=== PATIENT | female | born 1970 | race Hispanic/Latino ===

== ENCOUNTER 2019-10-25 19:44 | Observation (INO) | payer SELFPAY ==
[~2019-10-25] VITALS: Ht 162.6 cm; Wt 118.4 kg
--- OUTSIDE RECORDS SUMMARY | 2019-10-25 19:47 | XMS REPORT | Continuity of Care Document ---
Author Author [facility] t Organization [facility] Address [address] [place] [address] Phone Unavailable Care Team Providers Care Chuck Tender Name Role Phone Adamaris MARIE, Kevin PCP [phone] Vamshi MARIE, C Maria C Attphys Adamaris MARIE, Kevin Attphys [phone] Julio MARIE, Salma Attphys Derrek MEDELN, Chandni Attphys Unavailable Matilde MAIL PROCESSING MACHINE OPERATOR, Chastity Attphys Chandni Vila Attphys Unavailable Marcy RN, Franky Martinez Attphys Unavailable Franck MARIE, Bossman Attphys Payers Payer Name Policy Type Policy Number Effective Date Expiration Date S teresa [facility] [id number] [place] [address] xxxxxx 2018 00:00:00 2028 2 3:59:59 [facility] Problems Condition Name Condition Details Condition Category Status Onset Date Resolution Date Last Treatment Date Treating Clinician Comments Source Renal insufficiency Renal insufficiency Disease Active 2019-04-04 00:00 :00 [facility] Moderate episode of recurrent major depressive disorde r Moderate episode of recurrent major depressive disorder Disease Active 2016-03-09 00:00:00 [facility] ALEXA (generalized anxiety disorder) ALEXA (generalized anxiety diso rder) Disease Active 2016-03-09 00:00:00 [facility] Type 2 diabetes mellitus without complic ation, without long-term current use of insulin Type 2 diabetes mellitus without complic ation, without long-term current use of insulin Disease Active 2016-01-13 00:00:00 [facility] Iron deficiency anemia, unspecified Iron deficiency anemia, unsp ecified Disease Active 2016-01-13 00:00:00 [facility] Abnormal uterine bleeding (AUB) Abnormal uterine bleeding (AUB) Dis ease Active 2016-01-13 00:00:00 [facility] Mixed hyperlipidemia- pravachol 40mg Mixed hyperlipidemia- p ravachol 40mg Disease Active 2016-01-13 00:00:00 [facility] BMI 45.0-49.9, adult BMI 45.0-49.9, adult Disease Active 00:00:00 [facility] Essential hypertension, benign- atenelol, HCTZ and nor vasc Essential hypertension, benign- atenelol, HCTZ and norvasc Disease Active 2014-01-27 00:00:00 [facility] Cervical strain Cervical strain Disease Active 2006-02-13 00:00:00 [facility] Back pain Back pain Disease Active 2006-02-13 00:00:00 [facility] Allergies, Adverse Reactions, Alerts Allergy Name Allergy Type Status Severity Reaction(s) Onset Date Inacti ve Date Treating Clinician Comments Source Penicillins DA Active SV 2017-05-22 00:00:00 [facility] Penicillins Propensity to adverse reactions to drug Active 2006-02-13 00:00:00 Face turn colors like purple in childhood [facility] Family History Family Member Diagnosis Comments Start Date Stop Date Source Natural brother Hypertension [facility] Natural daughter [facility] Maternal aunt [facility] th Maternal aunt Diabetes [facility] th Maternal uncle [facility] Natural mother [facility] Natural mother [facility] Natural mother Hypertension [facility] Natural sister Hypertension [facility] Social History Social Habit Start Date Stop Date Quantity Comments Source Sex Assigned At [facility] Cigarettes smoked current (pack per day) - Reported 00:00:00 2019-07-10 00:00:00 [facility] Cigarette pack-years 2019-07-10 00:00:00 2019-07-10 00:00:00 [facility] Alcohol intake 2019-07-10 00:00:00 2019-07-10 00:00:00 [facility] History SDOH Food Worry 2019-04-01 00:00:00 2019-04-01 00:00:00 1 [facility] History SDOH Food Scarcity 2019-04-01 00:00:00 2019-04-01 00:00:00 1 [facility] History of tobacco use 2003-09-23 00:00:00 Current smoker [facility] Smoking Status Start Date Stop Date Source Former smoker 2019-07-10 00:00:00 2019-07-10 00:00:00 [facility] [facility] Medications Ordered Medication Name Filled Medication Name Start Date Stop Da te Current Medication? Ordering Clinician Indication Dosage Frequency Signature (SIG) Comments Components Source citalopram (CELEXA) 40 mg tablet 2019-08-20 00:00:00 Yes MDD (major depressive disorder), recurrent episode, moderate 40mg QD Take 1 tablet by mouth daily. [facility] buPROPion (WELLBUTRIN XL) 300 mg extended release tablet 2019-08-20 00:00:00 Yes MDD (major depressive disorder), recurrent epis ode, moderate 300mg Take 1 tablet by mouth every morning. [facility] ergocalciferol (VITAMIN D2) 1,250 mcg (50,000 unit) capsule 2019-07-13 00:00:00 Yes Vitamin D deficiency 94102R Take 1 cap den by mouth weekly. [facility] amLODIPine (NORVASC) 10 mg tablet 2019-07-10 00:00:00 Yes Essential hypertension 10mg QD Take 1 tablet by mouth daily. [facility] tropicamide (MYDRIACYL) 0.5 % ophthalmic solution 2019-07-10 00:00:00 2020-01-06 23:59:00 No 1[drp] Insti ll 1 Drop in each eye once as needed for up to 1 dose (for poor retina scan image). [facility] citalopram (CELEXA) 40 mg tablet 2019-06-18 00:00:00 2019-08 00:00:00 No MDD (major depressive disorder), recurrent episode, moderate 40mg QD Take 1 tablet by mouth daily. [facility] buPROPion (WELLBUTRIN XL) 300 mg extended release tablet 2019-06-18 00:00:00 2019-08-20 00:00:00 No MDD (major depressiv e disorder), recurrent episode, moderate 300mg Take 1 tablet by mouth every morning. [facility] pravastatin (PRAVACHOL) 40 mg tablet 2019-04-01 00:00:00 Yes Mixed hyperlipidemia 40mg Take 1 tablet by mouth at bedtime nightly. [facility] losartan (COZAAR) 50 mg tablet 2019-04-01 00:00:00 2019-06-15 00:00:00 No Essential hypertension 25mg QD Take 0.5 tablets by mouth daily. [facility] citalopram (CELEXA) 40 mg tablet 2019-04-01 00:00:00 2019-06 00:00:00 No MDD (major depressive disorder), recurrent episode, moderate 40mg QD Take 1 tablet by mouth daily. [facility] buPROPion (WELLBUTRIN XL) 300 mg extended release tablet 2019-04-01 00:00:00 2019-06-18 00:00:00 No MDD (major depressiv e disorder), recurrent episode, moderate 300mg Take 1 tablet by mouth every morning. [facility] lisinopril (PRINIVIL, ZESTRIL) 10 mg tablet 2018 00:00:00 2019-04-01 00:00:00 No Essential hypertension 10mg QD Take 1 tablet by mouth daily. [facility] citalopram (CELEXA) 40 mg tablet 2019-02-05 00:00:00 2019-03 00:00:00 No MDD (major depressive disorder), recurrent episode, moderate 40mg QD Take 1 tablet by mouth daily. [facility] buPROPion (WELLBUTRIN XL) 300 mg extended release tablet 2019-02-05 00:00:00 2019-04-01 00:00:00 No MDD (major depressiv e disorder), recurrent episode, moderate 300mg Take 1 tablet by mouth every morning. [facility] nitrofurantoin mono/m-crystals (MACROBID) 100 mg capsule 2018-12-25 00:00:00 2019-01-01 23:59:00 No Urinary tract infect ion with hematuria, site unspecified 100mg Q.5D Take 1 capsule by mouth 2 times daily for 7 da ys. [facility] atenolol (TENORMIN) 25 mg tablet 2018-11-22 00:00:00 Yes Essential hypertension 25mg QD Take 1 tablet by mouth daily. [facility] hydroCHLOROthiazide (HYDRODIURIL) 25 mg tablet 2018-11-22 00 :00:00 Yes Essential hypertension 25mg QD Take 1 tablet by mouth daily. [facility] metFORMIN (GLUCOPHAGE) 500 mg tablet 2018-11-22 00:00:00 Yes Controlled type 2 diabetes mellitus without complication, without long-term current use of insulin 500mg QD Take 1 tablet by mouth daily (with breakfast). [facility] cetirizine (ZYRTEC) 10 mg tablet 2018-11-22 00:00:00 Yes Environmental allergies 10mg QD Take 1 tablet by mouth daily. [facility] fluticasone propionate (FLONASE) 50 mcg/actuation nasal spra y 2018-11-22 00:00:00 Yes Environmental allergies 1{spray} QD Use 1 [place] in each nostril daily. [facility] clotrimazole (LOTRIMIN AF, CLOTRIMAZOLE,) 1 % topical cream 2018-11-22 00:00:00 Yes Tinea pedis of right foot Q.5D Apply to affected area 2 times daily For 2 wk and start again if rash recurs. [facility] tropicamide (MYDRIACYL) 0.5 % ophthalmic solution 2018-11-22 00:00:00 2018-11-22 23:59:00 No Controlled type 2 di abetes mellitus without complication, without long-term current use of insulin 1[drp] Instill 1 Drop in each eye once as needed for up to 1 dose (for poor retina scan image). [facility] atenolol (TENORMIN) 25 mg tablet 2018-10-30 00:00:00 2018-11 00:00:00 No Essential hypertension, benign 25mg QD Take 1 tablet by mouth alicia y. [facility] hydroCHLOROthiazide (HYDRODIURIL) 25 mg tablet 2 00:00:00 2018-11-22 00:00:00 No Essential hypertension, benign 25mg QD Take 1 tablet by mouth daily. [facility] citalopram (CELEXA) 40 mg tablet 2018-10-02 00:00:00 2019-01 00:00:00 No MDD (major depressive disorder), recurrent episode, moderate 40mg QD Take 1 tablet by mouth daily. [facility] buPROPion (WELLBUTRIN XL) 150 mg extended release tablet 2018-10-02 00:00:00 2019-02-05 00:00:00 No MDD (major depressiv e disorder), recurrent episode, moderate 150mg Take 1 tablet by mouth every morning. [facility] cetirizine (ZYRTEC) 10 mg tablet 2018-06-26 00:00:00 2018-11 00:00:00 No Acute frontal sinusitis, recurrence not specified 10mg QD Take 1 tablet by mouth daily. [facility] fluticasone (FLONASE) 50 mcg/actuation nasal spray 2018-06-26 00:00:00 2018-11-22 00:00:00 No Acute frontal sinusitis, rec urrence not specified 1{spray} QD Use 1 [place] in each nostril daily. [facility] ibuprofen (MOTRIN) 800 mg tablet 2018-05-22 00:00:00 2018-11 00:00:00 No Sore throat 800mg Take 1 tablet by mandie every 8 hours as needed for Pain Take with food. [facility] pravastatin (PRAVACHOL) 40 mg tablet 2018-02-14 00:00: 00 2019-04-01 00:00:00 No Mixed hyperlipidemia 40mg Take 1 tablet by mouth at b edtime nightly. [facility] amLODIPine (NORVASC) 10 mg tablet 2017-09-25 00:00:00 2018 00:00:00 No Essential hypertension, benign 10mg QD Take 1 tablet by mo ut daily. [facility] metFORMIN (GLUCOPHAGE) 500 mg tablet 2017-09-25 00:00: 00 2018-11-22 00:00:00 No Type 2 diabetes mellitus wit hout complication, without long-term current use of insulin 500mg QD Take 1 tablet by mouth daily (with breakfas t). [facility] atenolol (TENORMIN) 25 mg tablet 2017-09-25 00:00:00 2018-10 00:00:00 No Essential hypertension, benign 25mg QD Take 1 tablet by mouth alicia reeder [facility] hydroCHLOROthiazide (HYDRODIURIL) 25 mg tablet 2 00:00:00 2018-10-28 00:00:00 No Essential hypertension, benign 25mg QD Take 1 tablet by mouth daily. [facility] hydrOXYzine (ATARAX) 25 mg tablet 2017-08-09 00:00:00 2018 00:00:00 No Other insomnia 50mg Take 2 tablets b y mouth nightly at bedtime as needed for Insomnia. [facility] cetirizine (ZYRTEC) 10 mg tablet 2017-07-09 00:00:00 2018-11 00:00:00 No Viral upper respiratory tract infection with cough 10mg QD Take 1 tablet by mouth daily. [facility] ibuprofen (MOTRIN) 600 mg tablet 2017-07-09 00:00:00 2018-11 00:00:00 No Viral upper respiratory tract infection with cough 600mg Take 1 tablet by mouth every 8 hours as needed for Pain. [facility] benzonatate (TESSALON PERLES) 100 mg capsule 201 12-13-25 00:00:00 2018-11-22 00:00:00 No Viral upper respiratory tract infection with co ugh Take one to two capsules three times a day as needed for cough. [facility] Immunizations Ordered Immunization Name Filled Immunization Name Date Status Comments Source PPV 23 (Pneumococcal Polysaccharide 23 Valent) 2019-06 00:00:00 Completed [facility] Zoster Vaccine (Shingrix) 2019-07-10 00:00:00 [facility] Influenza, Injectable, Quadrivalent, Preservative Free 2019-03-12 00:00:00 [facility] Influenza, Vaccine<FLUCELVAX>(Multi-Dose) 2018-02-26 00:00 :00 [facility] Influenza Vaccine, Seasonal, Injectable 2017-02-22 00:00:0 0 Completed [facility] Tdap Tetanus, diphtheria, acellular pertussis Vaccine 2016-09-07 00:00:00 Completed [facility] Influenza Vaccine 2016-03-09 00:00:00 Completed [facility] Influenza Vaccine 2015-05-03 00:00:00 [facility] Vital Signs Vital Name Observation Time Observation Value Comments Source Systolic blood pressure 2019-07-10 09:23:00 141 mm[Hg] [facility] Diastolic blood pressure 2019-07-10 09:23:00 67 mm[Hg] [facility] Heart rate 2019-07-10 09:23:00 66 /min [facility] Body temperature 2019-07-10 09:23:00 37.33 Yen [facility] Respiratory rate 2019-07-10 09:23:00 18 /min Andr[facility] Body height 2019-07-10 09:23:00 162.6 cm [facility] Body weight 2019-07-10 09:23:00 120.657 kg [facility] BMI 2019-07-10 09:23:00 45.66 kg/m2 [facility] Oxygen saturation in Arterial blood by Pulse oximetry 12-25 10:10:00 96 /min [facility] Procedures Procedure Date / Time Performed Performing Clinician Sour e OPHTHALMOLOGY RETINAL SCAN 2019-07-24 14:33:08 [facility] COMPREHENSIVE METABOLIC PANEL 2019-07-10 17:07:00 Adamaris [facility] HEMOGLOBIN A1C 2019-07-10 17:07:00 [facility] THYROID STIMULATING HORMONE (TSH) 2019-07-10 17:07:00 [facility] VIT D, 25-HYDROXY 2019-07-10 [facility]:07[facility] [facility] HEMOCCULT KIT FOR SPECIMEN COLLECTION AT HOME 2019-07-10 16: 05:50 [facility] MAMMOGRAM BILAT SCREEN DIGITAL 2019-04-03 16:51:53 [facility] CBC/DIFF 2019-04-01 16:12:00 Bossman Juárez [facility] CBC 2019-04-01 16:12:00 [facility]PREHENSIVE METABOLIC PANEL 2019-04-01 16:06:00 Adamaris [facility] LIPID PROFILE 2019-04-01 16:06:00 [facility] HEMOGLOBIN A1C 2019-04-01 16:06:00 [facility] MICROALBUMIN / CREATININE URINE RATIO 2019-04-01 15:55:00 [facility] POC URINE DIPSTICK, WITHOUT MICRO 2018-12-25 00:00:00 Jami Clayton [facility] CBC/DIFF 2018-11-22 19:31:00 [facility] COMPREHENSIVE METABOLIC PANEL 2018-11-22 19:31:00 Adamaris In katerina [facility] HEMOGLOBIN A1C 2018-11-22 19:31:00 [facility] 2018-11-22 19:31:00 [facility] DIABETIC FOOT EXAM 2018-11-22 18:40:45 Kevin Bailon [facility] HEMOCCULT KIT FOR SPECIMEN COLLECTION AT HOME 2018-11-22 18: 37:24 Adamaris [facility] Plan of Care Planned Activity Planned Date Details Comments Source [facility] Scheduled Test 2020-07-23 00:00:00 DM Retinal Exam (Y early) [code = DM Retinal Exam (Yearly)] [facility] Scheduled Test 2020-07-10 00:00:00 DM HGBA1C (Yearly) [code = DM HGBA1C (Yearly)] [facility] Scheduled Test 2020-04-03 00:00:00 Breast Cancer Scrn (Yearly) [code = Breast Cancer Scrn (Yearly)] [facility] Scheduled Test 2020-04-01 00:00:00 DM Microalbumin Ur ine Scrn (Yearly) [code = DM Microalbumin Urine Scrn (Yearly)] [facility] Scheduled Test 2019-11-23 00:00:00 DM Foot Exam (Year ly) [code = DM Foot Exam (Yearly)] [facility] Scheduled Test 2019-06-06 00:00:00 Cervical Cancer Sc rn (3 Yrs) [code = Cervical Cancer Scrn (3 Yrs)] [facility] Scheduled Test 2018 00:00:00 Colorectal Cancer Scrn Annual (FIT/FOBT) Age 50 to 75 [code = Colorectal Cancer Scrn Annual (FIT/FOBT) Age 50 to 75] [facility] Encounters Start Date/Time End Date/Time Encounter Type Admission Type Attendi [facility] Care Department Encounter ID Source 2019-06-18 00:00:00 2019-06-18 00:00:00 Outpatient [facility] [id number] [facility] 2019-04-16 00:00:00 2019-04-16 00:00:00 Outpatient [facility] [id number] [facility] 2019-04-03 09:52:25 2019-04-03 09:52:25 Outpatient [facility] [id number] [facility] 2019-04-02 00:00:00 2019-04-02 00:00:00 Outpatient [facility] [id number] [facility] 2019-04-01 10:07:34 2019-04-01 10:07:34 Outpatient [facility] [id number] [facility] 2019-04-01 09:53:37 2019-04-01 09:53:37 Outpatient [facility] [id number] [facility] 2019-04-01 08:57:38 2019-04-01 08:57:38 Outpatient [facility] [id number] [facility] 2019-04-01 00:00:00 2019-04-01 00:00:00 Outpatient [facility] [id number] [facility] 2019-04-01 00:00:00 2019-04-01 00:00:00 Outpatient [facility] [id number] [facility] 2019-03-12 10:50:50 2019-03-12 10:50:50 Outpatient [facility] [id number] [facility] 2019-02-05 15:11:25 2019-02-05 15:11:25 Outpatient [facility] [id number] [facility] 2019-01-10 00:00:00 2019-01-10 00:00:00 Outpatient [facility] [id number] [facility] 2019-01-08 00:00:00 2019-01-08 00:00:00 Outpatient [facility] [id number] [facility] 2019-01-02 00:00:00 2019-01-02 00:00:00 Outpatient [facility] [id number] [facility] 2018-12-25 10:09:49 2018-12-25 10:09:49 Outpatient [facility] [id number] [facility] 2018-12-23 15:14:58 2018-12-23 15:14:58 Outpatient [facility] [id number] [facility] 2018-12-11 00:00:00 2018-12-11 00:00:00 Outpatient [facility] [id number] [facility] 2018-12-11 00:00:00 2018-12-11 00:00:00 Outpatient [facility] [id number] [facility] 2018-12-09 00:00:00 2018-12-09 00:00:00 Outpatient [facility] [id number] [facility] 2018-11-22 14:29:03 2018-11-22 14:29:03 Outpatient [facility] [id number] [facility] 2018-11-22 13:23:44 2018-11-22 13:23:44 Outpatient [facility] [id number] [facility] 2018-11-22 00:00:00 2018-11-22 00:00:00 Outpatient [facility] [id number] [facility] 2018-10-31 00:00:00 2018-10-31 00:00:00 Outpatient [facility] [id number] [facility] 2018-10-02 13:54:47 2018-10-02 13:54:47 Outpatient [facility] [id number] [facility] 2018-08-09 00:00:00 2018-08-09 00:00:00 Outpatient [facility] [id number] [facility] 2018-07-17 00:00:00 2018-07-17 00:00:00 Outpatient [facility] [id number] [facility] 2018-07-09 13:14:48 2018-07-09 13:14:48 Outpatient [facility] [id number] [facility] 2018-06-26 09:52:09 2018-06-26 09:52:09 Outpatient [facility] [id number] [facility] 2018-06-13 00:00:00 2018-06-13 00:00:00 Outpatient [facility] [id number] [facility] 2018-06-13 00:00:00 2018-06-13 00:00:00 Outpatient [facility] [id number] [facility] 2018-06-06 13:11:25 2018-06-06 13:11:25 Outpatient [facility] [id number] [facility] 2018-05-22 13:24:52 2018-05-22 13:24:52 Outpatient [facility] [id number] [facility] 2018-03-04 15:17:21 2018-03-04 15:17:21 Outpatient [facility] [id number] [facility] 2018-03-04 15:10:38 2018-03-04 15:10:38 Outpatient [facility] [id number] [facility] 2018-02-26 10:30:32 2018-02-26 10:30:32 Outpatient [facility] [id number] [facility] 2017-05-24 00:00:00 2017-05-24 00:00:00 Outpatient [facility] [id number] [facility] 2017-03-30 00:00:00 2017-03-30 00:00:00 Outpatient [facility] [id number] [facility] 2017-03-21 00:00:00 2017-03-21 00:00:00 Outpatient [facility] [id number] [facility] 2017-03-08 00:00:00 2017-03-08 00:00:00 Outpatient [facility] [id number] [facility] 2017-03-05 00:00:00 2017-03-05 00:00:00 Outpatient [facility] [id number] [facility] 2017-02-22 11:13:51 2017-02-22 11:13:51 Outpatient [facility] [id number] [facility] 2017-02-22 08:46:22 2017-02-22 08:46:22 Outpatient [facility] [id number] [facility] 2017-02-22 00:00:00 2017-02-22 00:00:00 Outpatient [facility] [id number] [facility] Results Test Description Test Time Test Comments Results Result Comments Source OPHTHALMOLOGY RETINAL SCAN 2019-07-24 11:22:38 Test Item RETINAL SCAN-FINAL RESULT (test code = 28480) NORMAL Right Diabetic Retinopathy (test code = 415473) None Right Macular Edema (test code = 21803) None Right Other Suspected Conditions (test code = 03252) None Right Image Quality (test code = 35028) Gradable Image Left Diabetic Retinopathy (test code = 37699) None Left Macular Edema (test code = 68577) None Left Other Suspected Conditions (test code = 41658) None Left Image Quality (test code = 95630) Gradable Image JANN (test code = JANN) Retinal Study Result for LUPE GARNETT, storm 49 y/o, F (: 1970, )presented to [facility] on 07-24-2019 for a retinal imaging study of the left and right eyes. Based on the findings of the study, the following is recommended for CORKY ALVARENGAormal Scan: Please advise the patient to return for another scan in 1 year. Interpreting Provider's Comments: No comments provided Right eye findings: Normal Result. Negative for Diabetic Retinopathy. Left eye findings: Normal Result. Negative for Diabetic Retinopathy. This result was electronically signed by Denis Erickson MD, , Taxonomy: [id number] on 07-24-2019 04:22:38 [facility] time. NOTE: Any pathology noted on this diabetic retinal evaluation should be confirmed by an appropriate ophthalmic examination. [facility], 84-[id number] 11:00:00* Test Item Value Reference Range Interpretation Comments Vit D, 25-Hydroxy (test code = 89497699) 16.0 ng/mL 30-100 L Vitamin D Interpretation (test code = 97949801) Deficient Suffic ient A Sufficient: >30.0Insufficient: 20.0 - 29.9Deficient: <20.0 Lab Interpretation (test code = 12973-1) Abnormal [facility] HospitalHemoglobin [id number] 07:57:00* Test Item Value Reference Range Interpretation Comments Hemoglobin A1c (test code = 4548-4) 6.8 % 4.3-6.1 H Estimated Average Glucose (test code = 57769322) 148 mg/dL 70-11 0 H Lab Interpretation (test code = 39638-3) Abnormal [facility] Metabolic [id number] 07:51:00* Test Item Value Reference Range Interpretation Comments Sodium (test code = 2951-2) 139 mmol/L 136-145 Potassium (test code = 2823-3) 4.3 mmol/L 3.5-5.1 Chloride (test code = 2075-0) 101 mmol/L 98-107 CO2 (test code = 06167573) 31 mmol/L 21-31 Glucose (test code = 18715646) 120 mg/dL 70-110 H Calcium (test code = 15450013) 9.1 mg/dL 8.6-10.3 Urea Nitrogen (test code = 72327832) 12.0 mg/dL 7-25 Creatinine (test code = 74844980) 0.7 mg/dL 0.6-1.2 Alkaline Phosphatase (test code = 95903500) 75 U/L 34-104 ALT (test code = 19180452) 15 U/L 7-52 AST (test code = 36109154) 11 U/L 13-39 L Total Protein (test code = 2885-2) 6.8 g/dL 6-8.3 GFR, Estimated (test code = 38025959) 88 >=90 mL/min/1.73 m2 L Albumin (test code = 69709-9) 3.8 g/dL 3.7-5.3 Anion Gap (test code = 05371226) 7 mmol/L -16 Lab Interpretation (test code = 58801-4) Abnormal [facility] [Thyroid Stimulating Hormone]2019-07-11 07:49:00* Test Item Value Reference Range Interpretation Comments TSH (test code = 94361098) 0.96 0.45- 5.33 uIU/mL If , please see the following reference ranges (not verified by lab): 1st Trimester: 0.05 -3.70 uIU/mL2nd Trimester: 0.31 -4.35 uIU/mL3rd Trimester: 0.41 - 5.18 uIU/mL Lab Interpretation (test code = 22587-8) Normal [facility]- XR CHEST 2 [id number] 11:06:00 Name: CORKY GARNETT [facility] : 1970 Age/S:48 /F [address] [place] [address] Unit#:[id number] Loc: [place] [address] Phys: Blair Cordon MD Dis Date: PHONE #: [phone] Status: REG ER FAX #: [phone] Exam Date: 05/15/2019 Reason: cough EXAMS: CPT CODE: [id number] XR CHEST 2 V 24589 HISTORY: Cough. COMPARISON: April 24, 2019. Location: [facility]. AP and lateral view of the chest: No acute infiltrates, effusion or congestion. Cardiac silhouette is mildly enlarged. IMPRESSION: No acute infiltrates, effusion or congestion. at 1106 Reported and signed by: Donell Munoz M.D. CC: Blair Cordon MD Technologist: Racheal Cantor Trnscrpt Data: 05/15/2019 (1106) [email or web address] Orig Print D/T: S: 05/15/2019 (2466) PAGE 1 Signed Report - XR CHEST 2 [id number] 16:10:00 Name: CORKY GARNETT [facility] : 1970 Age/S:48 /F [address] [place] [address] Unit#:[id number] Loc: [place] [address] Phys: Carlos Oneal MD Dis Date: PHONE #: [phone] Status: REG ER FAX #: [phone] Exam Date: 04/24/2019 Reason: cough EXAMS: CPT CODE: [id number] XR CHEST 2 V 36772 REASON FOR EXAM: cough Exam Order Date: 04/24/2019 3:38 PM Ordering: Carlos Oneal MD Attending:Carlos Oneal MD Location:[facility] PROCEDURE: - XR CHEST 2 V COMPARISON: FINDINGS: PA and lateral views of the chest show clear lungs without evidence of consolidation. No evidence of effusion. The heart size is within normal limits. Pulmonary vasculatures are unremarkable. The osseous structures are grossly intact. IMPRESSION: No active disease. at 1610 Reported and signed by: Demarcus Van M.D. CC: Carlos Oneal MD Technologist: ERWIN ESPINOZA RT(R),CT Trnscrpt Data: 04/24/2019 (2710) [email or web address] Orig Print D/T: S: 04/24/2019 (4372) PAGE 1 Signed Report MAMMOGRAM BILAT SCREEN [id number] 13:01:00IMPRESSION: BENIGNThere is no mammographic evidence of malignancy. A 1 year screening mammogram is recommended. This document has been electronically signed. Elsie Arreaga M.D. to/penrad:04/03/2019 13:01:11 Food Stand Manager: Ms. Anabel Ceron RT(R)(M), [facility] sent: Benign Exam Mammogram BI-RADS: 2 Benign G0202 z12.31Interface, Rad/Mammog In - 04/03/2019 1:54 PM FRAUD PREVENTION ANALYST#[id number] - MAMMOGRAM BILAT SCREEN DIGITALBILATERAL DIGITAL SCREENING MAMMOGRAM WITH CAD: 04/03/2019CLINICAL: Screening for malignancy. Comparison is made to exams dated: 03/04/2018, 03/30/2017, 03/09/2016, and 09/23/2013 [facility]. There are scattered fibroglandular elements in both breas ts that could obscure a lesion on mammography. Current study was also evaluated with a Computer Aided Detection (CAD) system. There are benign calcifications in both breasts. There also are benign lymph nodes in the left breast. No sign ificant masses, calcifications, or other findings are seen in either breast. Th ere has been no significant interval change.IMPRESSIONIMPRESSION: BENIGNThere is no mammographic evidence of malignancy. A 1 year screening mammogram is recomme nded. This document has been electronically signed.Elsie schneider o/penrad:04/03/2019 13:01:11 Food Stand Manager: Ms. Anabel Ceron RT(R)(M ), [facility] sent: Benign Exam Mammogram BI-RADS: 2 Benign G0202 z12.31[facility] HospitalMicroalbumin / Creatinine Urine [id number] 22:53:00* Test Item Value Reference Range Interpretation Comments Microalbumin, Random (test code = 02258131) 2.3 mg/dL <30.0 Corrected result: Previously reported as <0.7 mg/dL on 04/01/2019 at 1450 FRAUD PREVENTION ANALYST. Creatinine, Urine (test code = 06105986) 52 mg/dL 20-320 Urine Microalbumin (test code = 76062466) 44.2 mg/g 0-30 H Corrected result: Previously reported as <13.5 mg/g on 04/01/2019 at 1450 FRAUD PREVENTION ANALYST. JANN (test code = JANN) RESULT RULE CHANGE Lab Interpretation (test code = 13930-3) Abnormal [facility] HospitalLipid [id number] 14:48:00* Test Item Value Reference Range Interpretation Comments Cholesterol (test code = 2093-3) 203.0 mg/dL <=200.0 H Triglyceride (test code = 15560524) 199 mg/dL <150 H HDL (test code = 2085-9) 53.0 mg/dL See Reference Range Narrative . LDL (test code = 01049-7) 110 mg/dL <100 H Op timal: < 100.0 mg/dLNear Optimal: 120-129 mg/dLBorderline: 130-159 mg/dLHigh: 160-189 mg/dLVery High: >=190 mg/dL Patient Fasting? (test code = 38875486) No JANN (test code = JANN) Patient is not fasting. For a triglyceride result greater than 440 mg/dL, consider re-testing when the patient is in a fasting state. Lab Interpretation (test code = 37216-6) Abnormal [facility] URINE DIPSTICK, WITHOUT [id number] 00:00:00* Test Item Value Reference Range Interpretation Comments Color POC (test code = 8154) yellow - - - Clarity POC (test code = 8155) cloudy - - - Spec Alex POC (test code = 8156) >=1.030 1.005-1.030 pH POC (test code = 8157) 5.5 5.0-7.0 Protein POC (test code = 8158) 2+ Neg - Neg Glucose POC (test code = 8159) Neg Neg - Neg Ketone POC (test code = 8160) Neg Neg - Neg Bilirubin POC (test code = 8161) 1+ Neg - Neg Nitrate POC (test code = 8162) Neg Neg - Neg Urobilinogen POC (test code = 8163) 0.2 EU/dL 0.2-1 Leukocyte POC (test code = 8164) 1+ Neg - Neg Blood POC (test code = 8165) 2+ Neg - Neg [facility] HospitalDIABETIC FOOT [id number] 13:40:45Kevin Bailon MD 11/22/2018 5:15 PMDiabetic Foot Exam was performed at 11/22/2018 2:05 PM. Right foot sensation is normal, right foot pulses are normal, right foot appearance is abnormal. Left foot sensation is normal, left foot pulses are normal, left foot appearance is normal. erthematous rash rt foot dorsum 2x3 cm [facility]
--- OUTSIDE RECORDS SUMMARY | 2019-10-25 19:47 | XMS REPORT | Clinical Summary ---
Author Author [facility] Distr ict Organization [facility] Address Unknown Phone Unavailable Care Team Providers Care Warehouse Selector Name Role Phone Kevin Bailon MD PCP Allergies Comments Active Allergy Reactions Severity Noted Date Face turn colors like purple in childhood Penicillins 02/13/2006 Medications End Date Status Medication Sig Dispensed Refills Start Date Active atenolol (TENORMIN) 25 mg Take 1 tablet 90 tablet 2 tabletIndications: by mouth 9 Essential hypertension daily. Active hydroCHLOROthiazide Take 1 tablet 90 tablet 3 11/11 (HYDRODIURIL) 25 mg by mouth 9 tabletIndications: daily. Essential hypertension Active metFORMIN (GLUCOPHAGE) Take 1 tablet 90 tablet 3 0 500 mg tabletIndications: by mouth 9 Controlled type 2 daily (with diabetes mellitus without breakfast). complication, without long-term current use of insulin Active cetirizine (ZYRTEC) 10 mg Take 1 tablet 90 tablet 1 tabletIndications: by mouth 9 Environmental allergies daily. Additional information Patient not taking. Reported on 06/18/2019 11:51 AM Active fluticasone propionate Use 1 Lenore 16 g 6 (FLONASE) 50 in each 9 mcg/actuation nasal nostril sprayIndications: daily. Environmental allergies Active clotrimazole (LOTRIMIN Apply to 60 g 1 AF, CLOTRIMAZOLE,) 1 % affected area 9 topical creamIndications: 2 times daily Tinea pedis of right foot For 2 wk and start again if rash recurs. Active pravastatin (PRAVACHOL) Take 1 tablet 90 tablet 2 40 mg tabletIndications: by mouth at 9 Mixed hyperlipidemia bedtime nightly. 01/06/2020 Active tropicamide (MYDRIACYL) Instill 1 15 mL 0 0.5 % ophthalmic solution Drop in each 0 eye once as needed for up to 1 dose (for poor retina scan image). Active amLODIPine (NORVASC) 10 Take 1 tablet 90 tablet 2 mg tabletIndications: by mouth 0 Essential hypertension daily. Active ergocalciferol (VITAMIN Take 1 12 capsule 0 D2) 1,250 mcg (50,000 capsule by 0 unit) capsuleIndications: mouth weekly. Vitamin D deficiency Active citalopram (CELEXA) 40 mg Take 1 tablet 30 tablet 3 tabletIndications: MDD by mouth 0 (major depressive daily. disorder), recurrent episode, moderate Active buPROPion (WELLBUTRIN XL) Take 1 tablet 30 tablet 3 300 mg extended release by mouth 0 tabletIndications: MDD every (major depressive morning. disorder), recurrent episode, moderate 11/22/2018 Discontinued (Duplicate Orde r) cetirizine (ZYRTEC) 10 mg Take 1 tablet 30 tablet 0 tabletIndications: Viral by mouth 8 upper respiratory tract daily. infection with cough 11/22/2018 Discontinued (Therapy comple cyrus) ibuprofen (MOTRIN) 600 mg Take 1 tablet 30 tablet 0 tabletIndications: Acute by mouth 8 pharyngitis, unspecified every 8 hours etiology, Viral upper as needed for respiratory tract Pain. infection with cough 11/22/2018 Discontinued (Therapy comple cyrus) benzonatate (TESSALON Take one to 20 capsule 0 06/15 PERLES) 100 mg two capsules 8 capsuleIndications: Viral three times a upper respiratory tract day as needed infection with cough for cough. 02/05/2019 Discontinued (Therapy comple cyrus) hydrOXYzine (ATARAX) 25 Take 2 60 tablet 2 mg tabletIndications: tablets by 8 Other insomnia mouth nightly at bedtime as needed for Insomnia. 11/22/2018 Discontinued (Alternate ther apy) amLODIPine (NORVASC) 10 Take 1 tablet 90 tablet 2 mg tabletIndications: by mouth 8 Essential hypertension, daily. benign 11/22/2018 Discontinued (Reorder) metFORMIN (GLUCOPHAGE) Take 1 tablet 90 tablet 3 0 500 mg tabletIndications: by mouth 8 Type 2 diabetes mellitus daily (with without complication, breakfast). without long-term current use of insulin 10/28/2018 Discontinued (Reorder) atenolol (TENORMIN) 25 mg Take 1 tablet 90 tablet 2 tabletIndications: by mouth 8 Essential hypertension, daily. benign 10/28/2018 Discontinued (Reorder) hydroCHLOROthiazide Take 1 tablet 90 tablet 3 09/11 (HYDRODIURIL) 25 mg by mouth 8 tabletIndications: daily. Essential hypertension, benign 04/01/2019 Discontinued (Reorder) pravastatin (PRAVACHOL) Take 1 tablet 90 tablet 2 40 mg tabletIndications: by mouth at 8 Mixed hyperlipidemia bedtime nightly. 11/22/2018 Discontinued (Therapy comple cyrus) ibuprofen (MOTRIN) 800 mg Take 1 tablet 30 tablet 0 tabletIndications: Sore by mouth 9 throat every 8 hours as needed for Pain Take with food. 11/22/2018 Discontinued (Reorder) cetirizine (ZYRTEC) 10 mg Take 1 tablet 30 tablet 0 tabletIndications: Acute by mouth 9 frontal sinusitis, daily. recurrence not specified 11/22/2018 Discontinued (Reorder) fluticasone (FLONASE) 50 Use 1 Lenore 16 g 0 0 mcg/actuation nasal in each 9 sprayIndications: Acute nostril frontal sinusitis, daily. recurrence not specified 02/05/2019 Discontinued (Reorder) citalopram (CELEXA) 40 mg Take 1 tablet 30 tablet 3 tabletIndications: MDD by mouth 9 (major depressive daily. disorder), recurrent episode, moderate 02/05/2019 Discontinued (Therapy comple cyrus) buPROPion (WELLBUTRIN XL) Take 1 tablet 30 tablet 3 150 mg extended release by mouth 9 tabletIndications: MDD every (major depressive morning. disorder), recurrent episode, moderate 11/22/2018 Discontinued (Reorder) atenolol (TENORMIN) 25 mg Take 1 tablet 90 tablet 2 tabletIndications: by mouth 9 Essential hypertension, daily. benign 11/22/2018 Discontinued (Reorder) hydroCHLOROthiazide Take 1 tablet 90 tablet 3 10/12 (HYDRODIURIL) 25 mg by mouth 9 tabletIndications: daily. Essential hypertension, benign 11/22/2018 tropicamide (MYDRIACYL) Instill 1 15 mL 0 0.5 % ophthalmic Drop in each 9 solutionIndications: eye once as Controlled type 2 needed for up diabetes mellitus without to 1 dose complication, without (for poor long-term current use of retina scan insulin image). 01/01/2019 nitrofurantoin Take 1 14 capsule 0 mono/m-crystals capsule by 9 (MACROBID) 100 mg mouth 2 times capsuleIndications: daily for 7 Urinary tract infection days. with hematuria, site unspecified 04/01/2019 Discontinued citalopram (CELEXA) 40 mg Take 1 tablet 30 tablet 3 tabletIndications: MDD by mouth 9 (major depressive daily. disorder), recurrent episode, moderate 04/01/2019 Discontinued buPROPion (WELLBUTRIN XL) Take 1 tablet 30 tablet 3 300 mg extended release by mouth 9 tabletIndications: MDD every (major depressive morning. disorder), recurrent episode, moderate 04/01/2019 Discontinued (Alternate ther apy) lisinopril (PRINIVIL, Take 1 tablet 90 tablet 3 ZESTRIL) 10 mg by mouth 9 tabletIndications: daily. Essential hypertension 06/18/2019 Discontinued (Reorder) citalopram (CELEXA) 40 mg Take 1 tablet 30 tablet 3 tabletIndications: MDD by mouth 9 (major depressive daily. disorder), recurrent episode, moderate 06/18/2019 Discontinued (Reorder) buPROPion (WELLBUTRIN XL) Take 1 tablet 30 tablet 3 300 mg extended release by mouth 9 tabletIndications: MDD every (major depressive morning. disorder), recurrent episode, moderate 07/10/2019 Discontinued (Side effects) losartan (COZAAR) 50 mg Take 0.5 90 tablet 1 tabletIndications: tablets by 9 Essential hypertension mouth daily. 08/20/2019 Discontinued (Reorder) citalopram (CELEXA) 40 mg Take 1 tablet 30 tablet 3 tabletIndications: MDD by mouth 0 (major depressive daily. disorder), recurrent episode, moderate 08/20/2019 Discontinued (Reorder) buPROPion (WELLBUTRIN XL) Take 1 tablet 30 tablet 3 300 mg extended release by mouth 0 tabletIndications: MDD every (major depressive morning. disorder), recurrent episode, moderate Active Problems Problem Noted Date Renal insufficiency 04/04/2019 Moderate episode of recurrent major depressive disord er 03/09/2016 ALEXA (generalized anxiety disorder) 03/09/2016 Type 2 diabetes mellitus without complication, withou t long-term current 01/13/2016 use of insulin Iron deficiency anemia, unspecified 01/13/2016 Abnormal uterine bleeding (AUB) 01/13/2016 Mixed hyperlipidemia- pravachol 40mg 01/13/2016 BMI 45.0-49.9, adult 01/13/2016 Essential hypertension, benign- atenelol, HCTZ and no rvasc 01/27/2014 Cervical strain 02/13/2006 Back pain 02/13/2006 Encounters Care Team Description Date Type Specialty Maria C Bonds MD MDD (major depressive disorder), recurre nt episode, moderate 08/20/2019 Telephonic Psychiatry Encounter Kevin Bailon MD 07/24/2019 Ancillary Ophthalmology Procedure Kevin Bailon MD Preventative health care (Primary Dx); Type 2 diabetes mellitus with complication-microalb ; Dietary counseling for Above / Below Normal BMI; Exercise counseling for Above Normal BMI Only!; Colon cancer screening; Essential hypertension 07/10/2019 Office Visit Family Practice Maria C Bonds MD Primary insomnia (Primary Dx); MDD (major depressive disorder), recurrent episode, moderate 06/18/2019 Office Visit Psychiatry Kevin Bailon MD Breast cancer screening 04/03/2019 Ancillary Radiology Procedure Salma Kim MD MDD (major depressive disorder), recurre nt episode, moderate 04/01/2019 Office Visit Psychiatry Kevin Bailon MD Controlled type 2 diabetes mellitus with out complication, without long-term current use of insulin (Primary Dx); Dietary counseling for Above / Below Normal BMI; Exercise counseling for Above Normal BMI Only!; Nephropathy screen; Breast cancer screening; Mixed hyperlipidemia- pravachol 40mg; Essential hypertension 04/01/2019 Office Visit Family Practice Chandni Anglin LVN Need for immunization against influenza (Primary Dx) 03/12/2019 Nurse Only Family Practice Maria C Bonds MD MDD (major depressive disorder), recurre nt episode, moderate 02/05/2019 Office Visit Psychiatry Chastity Clayton, NEERU Urinary tract infection with hematuria, site unspecified (Primary Dx); Dysuria 12/25/2018 Same Day Family Practice Kevin Bailon MD Prideaux, Melissa 12/23/2018 Nutrition Nutrition Michelle Vidal RN 12/09/2018 Nurse Triage Kevin Bailon MD Controlled type 2 diabetes mellitus with out complication, without long-term current use of insulin (Primary Dx); Essential hypertension; Dietary counseling for Above / Below Normal BMI; Exercise counseling for Above Normal BMI Only!; Screening for breast cancer; Colon cancer screening; Immunization due; Environmental allergies; Abnormal uterine bleeding (AUB); Tinea pedis of right foot 11/22/2018 Office Visit Family Practice Kevin Bailon MD Controlled type 2 diabetes mellitus with out complication, without long-term current use of insulin; Dietary counseling for Above / Below Normal BMI 11/22/2018 Orders Only Family Practice Bossman Juárez MD Type 2 diabetes mellitus without complic ation, without long-term current use of insulin; Essential hypertension, benign- atenelol, HCTZ and norvasc 10/28/2018 Refill Family Practice after 10/24/2018 Immunizations Name Administration Dates Next Due Influenza Vaccine 03/09/2016, 05/03/2015, (Deferred: Unavailable-Patient to return for vacci ne later), 06/22/2014 (Deferred: Patient Refused), 05/21/2014 (Deferred: Other - pt ill, present to [facility] with flu like symptoms. will offer when she feels better.) Influenza Vaccine, 02/22/2017 Seasonal, Injectable Influenza, Injectable, 03/12/2019 Quadrivalent, Preservative Free Influenza, 02/26/2018 Vaccine<FLUCELVAX>(Multi- Dose) PNEUMOCOCCAL 23-VALPS 08/30/2016 (Deferred: Other - pt would like to VACCINE 25 MCG/0.5 ML wait until feeling better. ), 08/17/2016 INJECTION (Deferred: Other) PPV 23 (Pneumococcal 07/10/2019, 11/22/2018 (Def erred: Other - Declined Polysaccharide 23 Valent) today will receive at next visit.) PPV 23 Pneumococcal 06/26/2018 (Deferred: Contr aindication - flu like Polysaccaride symptoms) Tdap Tetanus, diphtheria, 09/07/2016 acellular pertussis Vaccine Zoster Vaccine (Shingrix) 07/10/2019, 11/22/2018 (De ferred: Unavailable-Patient to return for vacci ne later) Family History Medical History Relation Name Comments Hypertension Brother Asthma Daughter Cancer Maternal Aunt breast Diabetes Maternal Aunt Diabetes Maternal throat Uncle Arthritis Mother Diabetes Mother Hypertension Mother Hypertension Sister Relation Name Status Comments Brother Alive 5 Brother Daughter Alive 3 Daughter Father Alive Maternal Aunt Maternal Aunt Maternal Grandfather Maternal Grandmother Maternal Uncle Mother Alive Paternal Grandfather Paternal Grandmother Sister Alive 3 Sister Son Alive 2 Social History Date Tobacco Use Types Packs/Day Years Used Quit: 09/23/2003 Former Smoker Cigarettes 0.5 20 Smokeless Tobacco: Never Used Tobacco Cessation: Counseling Given: No Drinks/Week oz/Week Comments Alcohol Use No Food Insecurity Answer Date Recorded Within the past 12 months, you worried that your Never valery e 04/01/2019 food would run out before you got money to buy more. Within the past 12 months, the food you bought Never true 04/01/2019 just didn't last and you didn't have mo regan to get more. Sex Assigned at Date Recorded Not on file Industry Job Start Date Occupation Not on file Not on file Not on file Travel End Travel History Travel Start No recent travel history available. Last Filed Vital Signs Reading Time Taken Comments Vital Sign 141/67 07/10/2019 9:23 AM [employer] TECHNICIAN Blood Pressure 66 07/10/2019 9:23 AM [employer] TECHNICIAN Pulse 37.3 C (99.2 F) 07/10/2019 9:23 AM [employer] TECHNICIAN Temperature 18 07/10/2019 9:23 AM [employer] TECHNICIAN Respiratory Rate 96% 12/25/2018 10:10 AM CDT Oxygen Saturation - - Inhaled Oxygen Concentration 120.7 kg (266 lb) 07/10/2019 9:23 AM [employer] TECHNICIAN Weight 162.6 cm (5' 4") 07/10/2019 9:23 AM [employer] TECHNICIAN Height 45.66 07/10/2019 9:23 AM [employer] TECHNICIAN Body Mass Index Plan of Treatment Care Team Description Date Type Specialty Maria C Bonds MD [facility] [address] [place] [address] 11/12/2019 Office Visit Psychiatry Health Maintenance Due Date Last Done Comments Colorectal Cancer Scrn 2018 Annual (FIT/FOBT) Age 50 to 75 Cervical Cancer Scrn (3 06/06/2019 06/06/2016 (Pr eviously completed - Yrs) External), 08/26/2013 (Prev iously completed - External) DM Foot Exam (Yearly) 11/23/2019 11/22/2018, 06/14, 05/22/2018, Additional history exists DM Microalbumin Urine 04/01/2020 04/01/2019, 03/15, 02/22/2017, Scrn (Yearly) Additional history exists Breast Cancer Scrn 04/03/2020 04/03/2019, 018, 03/30/2017, (Yearly) Additional history exists DM HGBA1C (Yearly) 07/10/2020 07/10/2019, 019, 11/22/2018, Additional history exists DM Retinal Exam (Yearly) 07/23/2020 07/24/2019, 0 07/09/2018, 03/04/2018, Additional history exists Goals Goal Patient Associated Recent Progress Patient-Stat Aut hor Goal Type Problems ed? Have 3 meals a day Diet No Prideaux, Chandni Reduce portion size Diet No Prideaux, Chandni Note: 2-3 CHO portions per meal Reduce sugar intake Diet No Prideaux, Chandni Note: Switch to sugar subs in coffee and limit Gatorade Weight (lb) < 200 lb (90.7 kg) Weight 120.7 kg (266 lb) No Barning, (07/10/2019 9:23 AM MD Bossman [employer] TECHNICIAN) Note: Improve health Procedures Comments Procedure Name Priority Date/Time Associated Diag nosis OPHTHALMOLOGY RETINAL Routine 07/24/2019 SCAN 9:33 AM CDT VIT D, 25-HYDROXY Routine 07/10/2019 Preventative health care 11:07 AM [employer] TECHNICIAN THYROID STIMULATING Routine 07/10/2019 Essential hypertension HORMONE (TSH) 11:07 AM [employer] TECHNICIAN HEMOGLOBIN A1C Routine 07/10/2019 Type 2 diabetes mellitus 11:07 AM [employer] TECHNICIAN with complication-microalb COMPREHENSIVE METABOLIC Routine 07/10/2019 Type 2 diabetes mellitus PANEL 11:07 AM [employer] TECHNICIAN with complication-microalb HEMOCCULT KIT FOR Routine 07/10/2019 Colon cancer screening SPECIMEN COLLECTION AT 10:05 AM [employer] TECHNICIAN HOME MAMMOGRAM BILAT SCREEN Routine 04/03/2019 Breast cancer screening DIGITAL 10:51 AM [employer] TECHNICIAN CBC Routine 04/01/2019 Abnormal uterin e bleeding 10:12 AM [employer] TECHNICIAN (AUB) CBC/DIFF Routine 04/01/2019 Abnormal uterin e bleeding 10:12 AM [employer] TECHNICIAN (AUB) HEMOGLOBIN A1C Routine 04/01/2019 Controlled type 2 10:06 AM [employer] TECHNICIAN diabetes mellitus without complication, without long-term current use of insulin LIPID PROFILE Routine 04/01/2019 Controlled type 2 10:06 AM [employer] TECHNICIAN diabetes mellitus without complication, without long-term current use of insulin COMPREHENSIVE METABOLIC Routine 04/01/2019 Contro lled type 2 PANEL 10:06 AM [employer] TECHNICIAN diabetes mellitus w ithout complication, without long-term current use of insulin MICROALBUMIN / CREATININE Routine 04/01/2019 Neph ropathy screen URINE RATIO 9:55 AM [employer] TECHNICIAN POC URINE DIPSTICK, Routine 12/25/2018 Dysuria WITHOUT MICRO CBC Routine 11/22/2018 Controlled type 2 2:31 PM CDT diabetes mellitus without complication, without long-term current use of insulin HEMOGLOBIN A1C Routine 11/22/2018 Controlled type 2 2:31 PM CDT diabetes mellitus without complication, without long-term current use of insulin COMPREHENSIVE METABOLIC Routine 11/22/2018 Contro lled type 2 PANEL 2:31 PM CDT diabetes mellitus w ithout complication, without long-term current use of insulin CBC/DIFF Routine 11/22/2018 Controlled type 2 2:31 PM CDT diabetes mellitus without complication, without long-term current use of insulin DIABETIC FOOT EXAM Routine 11/22/2018 Controlled type 2 1:40 PM CDT diabetes mellitus without complication, without long-term current use of insulin HEMOCCULT KIT FOR Routine 11/22/2018 Colon cancer screening SPECIMEN COLLECTION AT 1:37 PM CDT HOME after 10/24/2018 Results * OPHTHALMOLOGY RETINAL SCAN (07/24/2019 9:33 AM CDT) RETINAL NORMAL IRIS SCAN-FINAL RESULT Right Diabetic None IRIS Retinopathy Right Macular None IRIS Edema Right Other None IRIS Suspected Conditions Right Image Gradable Image IRIS Quality Left Diabetic None IRIS Retinopathy Left Macular None IRIS Edema Left Other None IRIS Suspected Conditions Left Image Gradable Image IRIS Quality Specimen Narrative Performed At Retinal Study Result for storm HINOJOSA 49 y/o, F (: [birth year], ) presented to [facility] on 07-24-2019 for a retinal imaging study of the left and r ight eyes. Based on the findings of the study, the following is recommended for CORKY ANG Normal Scan: Please advise the patient to return for another scan in 1 year. Interpreting Provider's Comments: No comments provided Right eye findings: Normal Result. Ne gative for Diabetic Retinopathy. Left eye findings: Normal Result. Neg ative for Diabetic Retinopathy. This result was electronically signed Denis Harris MD, , Taxonomy: [id number] on 07-24-2019 04:2 2:38 [facility] time. NOTE: Any pathology noted on this arnulfo betic retinal evaluation should be confirmed by an appropriate ophthalmic examination. Performing Organization Address City/State/Zipcode Ph one Number IRIS * Vitamin D, 25-Hydroxycalciferol (07/10/2019 11:07 AM [employer] TECHNICIAN) Vit D, 16.0 (L) 30.0 - 100.0 ng/mL [facility] 25-Hydroxy LABORATORY Vitamin D Deficient (A) Sufficient [facility] Interpretation Comment: LABORATORY Sufficient: >30.0 Insufficient: 20.0 - 29.9 Deficient: <20.0 Specimen Blood Performing Organization Address [facility] one Number [facility] [address] [place] [address] * Hemoglobin A1C (07/10/2019 11:07 AM [employer] TECHNICIAN) Only the most recent of 3 results within the time period is included. Hemoglobin A1c 6.8 (H) 4.3 - 6.1 % [facility] Estimated 148 (H) 70 - 110 mg/dL [facility] Average Glucose LABORATORY Specimen Blood Performing Organization Address [facility] one Number [facility] [address] [place] [address] [phone] * Comprehensive Metabolic Panel (07/10/2019 11:07 AM [employer] TECHNICIAN) Only the most recent of 3 results within the time period is included. Sodium 139 136 - 145 mmol/L [facility] Potassium 4.3 3.5 - 5.1 mmol/L [facility] Chloride 101 98 - 107 mmol/L [facility] CO2 31 21 - 31 mmol/L [facility] Glucose 120 (H) 70 - 110 mg/dL [facility] Calcium 9.1 8.6 - 10.3 mg/dL [facility] Urea Nitrogen 12.0 7.0 - 25.0 mg/dL [facility] Creatinine 0.7 0.6 - 1.2 mg/dL [facility] Alkaline 75 34 - 104 U/L [facility] Phosphatase LABORATORY ALT 15 7 - 52 U/L [facility] AST 11 (L) 13 - 39 U/L [facility] Bilirubin, 0.8 0.2 - 1.2 mg/dL [facility] Total LABORATORY Total Protein 6.8 6.0 - 8.3 g/dL [facility] GFR, Estimated 88 (L) >=90 mL/min/1.73 m2 [facility] Albumin 3.8 3.7 - 5.3 g/dL [facility] Anion Gap 7 5 - 16 mmol/L [facility] Specimen Blood Performing Organization Address [facility] one Number [facility] [address] [place] [address] * TSH [Thyroid Stimulating Hormone] (07/10/2019 11:07 AM [employer] TECHNICIAN) TSH 0.96 0.45 - 5.33 uIU/mL [facility] Comment: LABORATORY If , please see the following reference ranges (not verified by lab): 1st Trimester: 0.05 -3.70 uIU/mL 2nd Trimester: 0.31 -4.35 uIU/mL 3rd Trimester: 0.41 - 5.18 uIU/mL Specimen Blood Performing Organization Address City/State/Zipcode Ph one Number [facility] [address] [place] [address] [phone] * MAMMOGRAM BILAT SCREEN DIGITAL (04/03/2019 10:51 AM [employer] TECHNICIAN) Specimen Impressions Performed At IMPRESSION: BENIGN SMS There is no mammographic evidence of ma lignancy. A 1 year screening mammogram is recommended. This document has been electronically s igned. Elsie Arreaga M.D. to/penrad:04/03/2019 13:01:11 Fireproof Door Assembler: Ms. Anabel waldrop RT(R)(M), [facility] letter sent: Benign Exam Mammogram BI-RADS: 2 Benign G0202 z1 2.31 Narrative Performed At #[id number] - MAMMOGRAM BILAT SCREEN DIGITAL SMS BILATERAL DIGITAL SCREENING MAMMOGRAM W ITH CAD: 04/03/2019 CLINICAL: Screening for malignancy. Comparison is made to exams dated: , 03/30/2017, 03/09/2016, and 09/23/2013 [facility]. There are scattered fibroglandular [place] ents in both breasts that could obscure a lesion on mammography. Current study was also evaluated with a Computer Aided Detection (CAD) system. There are benign calcifications in both breasts. There also are benign lymph nodes in the left breast. No significant masses, calcifications, or other findings are seen in either breast. There has been no significant interval change. Procedure Note Interface, Rad/Mammog In - 04/03/2019 1:54 PM [employer] TECHNICIAN #[id number] - MAMMOGRAM BILAT SCREEN DIGITAL BILATERAL DIGITAL SCREENING MAMMOGRAM WITH CAD: 04/03/2019 CLINICAL: Screening for malignancy. Comparison is made to exams dated: 03/04/2018, 03/30/2017, 03/09/2016, and 09/23/2013 [facility]. There are scattered fibroglandular elements in both breasts that could obscure a lesion on mammography. Current study was also evaluated with a Computer Aided Detection (CAD) system. There are benign calcifications in both breasts. There also are benign lymph nodes in the left breast. No significant masses, calcifications, or other findings are seen in either breast. There has been no significant interval change. IMPRESSION IMPRESSION: BENIGN There is no mammographic evidence of malignancy. A 1 year screening mammogram is recommended. This document has been electronically signed. Elsie Arreaga M.D. to/penrad:04/03/2019 13:01:11 Fireproof Door Assembler: Ms. Anabel Ceron RT([place])(M), [facility] letter sent: Benign Exam Mammogram BI-RADS: 2 Benign G0202 z12.31 Performing Organization Address City/State/Zipcode Ph one Number SMS * CBC/Diff (04/01/2019 10:12 AM [employer] TECHNICIAN) Only the most recent of 2 results within the time period is included. WBC 9.5 4.5 - 11.0 K/uL [facility] RBC 5.03 4.20 - 5.40 M/uL [facility] Hemoglobin 14.9 12.0 - 16.0 g/dL [facility] Hematocrit 46.3 37.0 - 47.0 % [facility] MCV 92.0 82.0 - 92.0 fL [facility] MCH 29.6 27.0 - 32.0 pg [facility] MCHC 32.2 32.0 - 36.0 g/dL [facility] RDW 45.0 36.4 - 46.3 fL [facility] Platelet 234 150 - 400 K/uL [facility] Mean Platelet 11.9 9.4 - 12.4 fL [facility] Volume [facility] Percent NRBC 0.0 % [facility] Neutrophil 66.4 34.0 - 70.0 % [facility] Lymphs 26.6 20.0 - 50.0 % [facility] Monocytes 4.8 (L) 5.0 - 12.0 % [facility] Eos 0.9 0.7 - 5.0 % [facility] Basos 0.6 0.1 - 1.2 % [facility] Immature 0.7 (H) 0.0 - 0.5 % [facility] Granulocytes [facility] Neutrophils 6.30 (H) 1.56 - 6.13 K/uL [facility] (Absolute) [facility] Lymphs 2.53 1.18 - 3.74 K/uL [facility] (Absolute) [facility] Monocytes(Absol 0.46 (H) 0.24 - 0.36 K/uL [facility] dora) [facility] Eos (Absolute) 0.09 0.04 - 0.36 K/uL [facility] Baso (Absolute) 0.06 0.01 - 0.08 K/uL [facility] Immature Grans 0.07 (H) 0.00 - 0.03 K/uL [facility] (Abs) [facility] Absolute NRBC 0.00 K/uL [facility] Specimen Blood Performing Organization Address City/[facility] Ph one Number [facility] [address] [place] [address] [phone] * Lipid Profile (04/01/2019 10:06 AM [facility]OR[facility] TECHNICIAN) [facility] Cholesterol 203.0 (H) <=200.0 mg/dL [facility] Triglyceride 199 (H) <150 mg/dL [facility] HDL 53.0 See Reference Range [facility] Narrative. mg/dL [facility] LDL 110 (H) <100 mg/dL [facility] Comment: [facility] Optimal: < 100.0 mg/dL Near Optimal: 120-129 mg/dL Borderline: 130-159 mg/dL High: 160-189 mg/dL Very High: >=190 mg/dL Patient No [facility] Fasting? [facility]OR[facility] Specimen Blood Narrative Performed At Patient is not fasting. For a triglyceride result gre ater than 440 mg/dL, [facility] consider re-testing when the patient is in a fasting state. Performing Organization Address City/[facility] Ph one Number [facility] [address] [place] [address] * Microalbumin / Creatinine Urine Ratio (04/01/2019 9:55 AM [employer] LABORATORY TECHNICIAN) [facility] Microalbumin, 2.3Comment: Corrected result: <30.0 mg/dL [facility] Previously reported as <0.7 LABORATOR Y mg/dL on 04/01/2019 at 1450 [facility]ORAT[facility] TECHNICIAN. Creatinine, 52 20 - 320 mg/dL [facility] Urine [facility] Urine 44.2 (H)Comment: Corrected 0.0 - 30.0 mg/g [facility] Microalbumin result: Previously reported as LABORA TORY <13.5 mg/g on 04/01/2019 at 1450 [employer] LABORATORY TECHNICIAN. Specimen Urine - Voided, urine Narrative Performed At RESULT RULE CHANGE [facility] Performing Organization Address [facility] Ph one Number [facility] [address] [place] [address] * POC URINE DIPSTICK, WITHOUT MICRO (12/25/2018) Color POC yellow - - - Clarity POC cloudy - - - Spec [place] >=1.030 1.005 - 1.030 POC pH POC 5.5 5.0 - 7.0 Protein POC 2+ Neg - Neg Glucose POC Neg Neg - Neg Ketone POC Neg Neg - Neg Bilirubin POC 1+ Neg - Neg Nitrate POC Neg Neg - Neg Urobilinogen 0.2 0.2 - 1.0 EU/dL POC Leukocyte POC 1+ Neg - Neg Blood POC 2+ Neg - Neg Specimen Urine * DIABETIC FOOT EXAM (11/22/2018 1:40 PM CDT) Narrative Performed At Kevin Bailon MD 11/23/19 19 5:15 PM Diabetic Foot Exam was performed at 11/11 2:05 PM. Right foot sensation is normal, right foot pulses are normal, right foot appearance is abnormal. Left foot sensation is n ormal, left foot pulses are normal, left foot appearance is normal. erthema tous rash rt foot dorsum 2x3 cm after 10/24/2018 Insurance Type Payer Benefit Subscriber ID Effective Phone Address Plan / Dates Group [facility] SELF-PAY SELF-PAY xxxxxx 2018- [phone] [id number] [place] [phone] Marco A Anga Personal/F Self 1970 [phone] (Home) [place], [place] [address]
[2019-10-25 19:59] LABS: BASOPHILS % 0.3 % (0.0-1.0); EOSINOPHILS % 0.3 % (0.0-6.0); HEMATOCRIT 45.7 % (34.2-44.1); HEMOGLOBIN 14.8 g/dL (12.0-16.0); LYMPHOCYTES # (AUTO) 1.3 (1.0-3.2); LYMPHOCYTES % 20.8 % (18.0-39.1); MEAN CORPUSCULAR HEMOGLOBIN 28.6 pg (28-32); MEAN CORPUSCULAR HGB CONC 32.4 g/dL (31-35); MEAN CORPUSCULAR VOLUME 88.2 fL (81-99); MONOCYTES # (AUTO) 0.4 (0.2-0.8); MONOCYTES % 6.2 % (4.4-11.3); NEUTROPHILS # (AUTO) 4.5 (2.1-6.9); NEUTROPHILS % 72.2 % (38.7-80.0); PLATELET COUNT 166 x10e3/uL (140-360); RED BLOOD COUNT 5.18 x10e6/uL (3.6-5.1); RED CELL DISTRIBUTION WIDTH 13.3 % (11.7-14.4)
--- NOTE | 2019-10-25 20:01 | Emergency Department Note ---
History of Present Illnes History of Present Illness Chief Complaint: COVID PUI History of Present Illness This is a 49 year old female REPORTS GENERALIZED WEAKNESS, CHEST AND BACK PAIN, BODY ACHES, CHILLS; PT TESTED AT [facility] YESTERDAY FOR COVID (NOT RESULTED AT THIS TIME) PT REPORTS WAS IN CONTACT WITH COVID + FRIEND X1 WEEK AGO. STATES HER SYMPTOMS STARTED 3 DAYS AGO.. Historian: Patient Arrival Mode: Car Onset (how long ago): day(s) (3) Location: CHEST Quality: PAIN, HURTS TO BREATH, PAIN IS RIGHT LATERAL CHEST Radiation: Reports non-radiation Severity: mild Onset quality: gradual Duration (how long): day(s) (3) Timing of current episode: constant Progression: unchanged Chronicity: new Context: Denies recent illness, Denies recent surgery Relieving factors: none Exacerbating factors: movement (INSPIRATION) Associated symptoms: Reports denies other symptoms Treatments prior to arrival: none Past Medical/Family History Physician Review I have reviewed the patient's past medical and family history. Any updates have been documented here. Past Medical History Recent Fever: Yes Clinical Suspicion of Infectio: No New/Unexplained Change in Ment: No Past Medical History: Hypertension, Diabetes, Depression, Hyperlipedemia Past Surgical History: Social History Smoking Cessation: Never Smoker Counseling Performed: No Alcohol Use: Social Any Illegal Drug Use: No TB Exposure/Symptoms: No Physically hurt or threatened: No Family History Family history of heart diseas: No Other Last Tetanus: UTD Any Pre-Existing Lines (PICC,: No Is patient up to date on immun: Yes Last Flu: DENIES Last Pneumovax: DENIES Review of Systems Review of Systems Constitutional: Reports as per HPI EENTM: Reports no symptoms Cardiovascular: Reports as per HPI Respiratory: Reports as per HPI Gastrointestinal: Reports no symptoms Genitourinary: Reports no symptoms Musculoskeletal: Reports no symptoms Integumentary: Reports no symptoms Neurological: Reports no symptoms Psychological: Reports no symptoms Endocrine: Reports no symptoms Hematological/Lymphatic: Reports no symptoms Physical Exam Related Data Allergies: Coded Allergies: Penicillins (Verified Allergy, Intermediate, 10/25/19) Triage Vital Signs Vital Signs Date Time Temp Pulse Resp B/P (MAP) Pulse Ox O2 Delivery O2 Flow Rate FiO2 10/25/19 19:45 99.9 65 16 143/94 96 Vital signs reviewed: Yes Physical Exam CONSTITUTIONAL Constitutional: Present well-developed, Present well-nourished HENT HENT: Present normocephalic, Present atraumatic, Present oropharynx clear/moist, Present nose normal HENT L/R: Present left ext ear normal, Present right ext ear normal EYES Eyes: Reports PERRL, Reports conjunctivae normal NECK Neck: Present ROM normal PULMONARY Pulmonary: Present effort normal, Present breath sounds normal, Present chest tenderness (TO PALPATION OF RIGHT LATERAL CHEST WALL) CARDIOVASCULAR Cardiovascular: Present regular rhythm, Present heart sounds normal, Present capillary refill normal, Present normal rate GASTROINTESTINAL Abdominal: Present soft, Present nontender, Present bowel sounds normal GENITOURINARY Genitourinary: Present exam deferred SKIN Skin: Present warm, Present dry MUSCULOSKELETAL Musculoskeletal: Present ROM normal NEUROLOGICAL Neurological: Present alert, Present oriented x 3, Present no gross motor or sensory deficits PSYCHOLOGICAL Psychological: Present mood/affect normal, Present judgement normal Results Laboratory Laboratory Laboratory Tests Test 10/25/19 19:46 10/25/19 19:45 White Blood Count 6.16 x10e3/uL (4.8-10.8) Red Blood Count 5.18 x10e6/uL (3.6-5.1) Hemoglobin 14.8 g/dL (12.0-16.0) Hematocrit 45.7 % (34.2-44.1) Mean Corpuscular Volume 88.2 fL (81-99) Mean Corpuscular Hemoglobin 28.6 pg (28-32) Mean Corpuscular Hemoglobin Concent 32.4 g/dL (31-35) Red Cell Distribution Width 13.3 % (11.7-14.4) Platelet Count 166 x10e3/uL (140-360) Neutrophils (%) (Auto) 72.2 % (38.7-80.0) Lymphocytes (%) (Auto) 20.8 % (18.0-39.1) Monocytes (%) (Auto) 6.2 % (4.4-11.3) Eosinophils (%) (Auto) 0.3 % (0.0-6.0) Basophils (%) (Auto) 0.3 % (0.0-1.0) Neutrophils # (Auto) 4.5 (2.1-6.9) Lymphocytes # (Auto) 1.3 (1.0-3.2) Monocytes # (Auto) 0.4 (0.2-0.8) Eosinophils # (Auto) 0.0 (0.0-0.4) Basophils # (Auto) 0.0 (0.0-0.1) Absolute Immature Granulocyte (auto 0.01 x10e3/uL (0-0.1) D-Dimer Quantitative (PE/DVT) 140 ng/mL (0-400) Sodium Level 137 mmol/L (136-145) Potassium Level 3.7 mmol/L (3.5-5.1) Chloride Level 102 mmol/L (98-107) Carbon Dioxide Level 22 mmol/L (22-29) Anion Gap 16.7 mmol/L (8-16) Blood Urea Nitrogen 16 mg/dL (7-26) Creatinine 1.06 mg/dL (0.57-1.11) Estimat Glomerular Filtration Rate 55 ML/MIN (60-) BUN/Creatinine Ratio 15 (6-25) Glucose Level 163 mg/dL (74-118) Calcium Level 9.9 mg/dL (8.4-10.2) Total Bilirubin 0.5 mg/dL (0.2-1.2) Aspartate Amino Transf (AST/SGOT) 22 IU/L (5-34) Alanine Aminotransferase (ALT/SGPT) 25 IU/L (0-55) Alkaline Phosphatase 97 IU/L (40-150) Creatine Kinase 35 IU/L (29-168) Creatine Kinase MB 0.70 ng/mL (0-5.0) Troponin I 0.019 ng/mL (0-0.300) Total Protein 7.7 g/dL (6.5-8.1) Albumin 3.4 g/dL (3.5-5.0) Globulin 4.3 g/dL (2.3-3.5) Albumin/Globulin Ratio 0.8 (0.8-2.0) Laboratory Tests Test 10/25/19 19:46 10/25/19 19:45 Lab results reviewed: Yes Imaging Imaging results reviewed: Yes Impressions Procedure: [id number] DX/CHEST SINGLE (PORTABLE) Exam Date: 10/25/19 Exam Time: 2001 REPORT STATUS: Signed EXAMINATION: CHEST SINGLE (PORTABLE) INDICATION: ^Y ^FEVER, COUGH, CHEST PAIN ^[id number] ^2001 ^Y COMPARISON: None FINDINGS: AP view TUBES and LINES: None. LUNGS: Limited by body habitus. Lungs are well inflated. Questionable subtle bilateral peripheral airspace opacities. PLEURA: No pleural effusion or pneumothorax. HEART AND MEDIASTINUM: The cardiomediastinal silhouette is unremarkable. BONES AND SOFT TISSUES: No acute osseous lesion. Soft tissues are unremarkable. UPPER ABDOMEN: No free air under the diaphragm. IMPRESSION: Questionable subtle bilateral peripheral airspace opacities. Underlying/developing pneumonia cannot be excluded. Signed by: Dr. Matt Elise MD on 10/25/2019 8:42 PM Procedures 12 Lead ECG Interpretation ECG Interpretation : ECG: ECG 1 [employer] Loss Prevention Manager: Interpreted by ED physician Date: Oct 25, 2019 Time: 19:51 Rhythm: sinus rhythm Rate: normal BPM: 64 QRS axis: normal ST segments normal: Yes T waves normal: Yes Other findings: LVH Q waves: V1 Clinical Impression: abnormal ECG Assessment & Plan Medical Decision Making MDM Patient presents with 3 days of subjective fever chills body aches dry cough chest pain with cough and inspiration. Was exposed was with a friend a week ago who tested positive for Covid a couple days later. CBC, CMP, cardiac enzymes, EKG, chest x-ray, Covid 19, d-dimer, ordered to eval for myocardial infarction, pneumonia, Covid 19, pulmonary embolus. Patient did not have findings of what looks like bilateral pneumonia on chest x- ray. As a positive color exposure. His comorbidities of hypertension diabetes. O2 sats are 96% on room air. I spoke with should be given Dr. Wilde and they sent agreed to place patient in observation status pending Yap test if Yap test is positive pt will be placed in yap unit. Patient started on Rocephin and Zithromax.. Assessment & Plan Final Impression: (1) Multifocal pneumonia Depart Disposition: ADMITTED Last Vital Signs Date Time Temp Pulse Resp B/P (MAP) Pulse Ox O2 Delivery O2 Flow Rate FiO2 10/25/19 19:45 99.9 65 16 143/94 96 MAX DELEON MD Oct 25, 2019 20:01
[2019-10-25 20:39] LABS: ALBUMIN 3.4 g/dL (3.5-5.0); ALBUMIN/GLOBULIN RATIO 0.8 (0.8-2.0); ANION GAP 16.7 mmol/L (8-16); CALCIUM 9.9 mg/dL (8.4-10.2); CREATININE, SERUM 1.06 mg/dL (0.57-1.11); POTASSIUM 3.7 mmol/L (3.5-5.1)
[2019-10-25 20:46] LABS: CREATINE KINASE MB 0.7 ng/mL (0-5.0)
--- NOTE | 2019-10-25 20:46 | Diagnostic Imaging Report ---
EXAMINATION: CHEST SINGLE (PORTABLE) INDICATION: ^Y ^FEVER, COUGH, CHEST PAIN ^[id number] ^2001 ^Y COMPARISON: None FINDINGS: AP view TUBES and LINES: None. LUNGS: Limited by body habitus. Lungs are well inflated. Questionable subtle bilateral peripheral airspace opacities. PLEURA: No pleural effusion or pneumothorax. HEART AND MEDIASTINUM: The cardiomediastinal silhouette is unremarkable. BONES AND SOFT TISSUES: No acute osseous lesion. Soft tissues are unremarkable. UPPER ABDOMEN: No free air under the diaphragm. IMPRESSION: Questionable subtle bilateral peripheral airspace opacities. Underlying/developing pneumonia cannot be excluded. Signed by: Dr. Matt Elise MD on 10/25/2019 8:42 PM
[2019-10-25] MEDS ORDERED: AZITHROMYCIN 500MG/NS 250 ML 250 ML IV SCH (21:00)
[2019-10-25] MEDS ORDERED: CEFTRIAXONE SOD 1 GM/NS 50 ML 50 ML IV SCH (21:00)
[2019-10-25] MEDS ORDERED: DEXTROSE 50% SYRINGE 50 ML IV PRN (21:15)
[2019-10-25] MEDS ORDERED: ACETAMINOPHEN 325 MG TAB PO PRN (21:15)
[2019-10-25] MEDS: SODIUM CHLORIDE 0.9% 1000ML 1,000 ML IV SCH (21:26)
[2019-10-25 21:59] LABS: CLARITY,URINE CLEAR (CLEAR); COLOR,URINE YELLOW (YELLOW); LEUKOCYTE ESTERASE ,URINE NEGATIVE (NEGATIVE); NITRITE,URINE NEGATIVE (NEGATIVE)
[2019-10-25 22:00] LABS: BACTERIA,URINE RARE /HPF; BILIRUBIN,URINE NEGATIVE (NEGATIVE); EPITHELIAL CELLS,URINE FEW /LPF; KETONES,URINE NEGATIVE (NEGATIVE); PROTEIN,URINE DIPSTICK TRACE (NEGATIVE); RBC,URINE 0-5 /HPF (0-5); URINE UROBILINOGEN 0.2 mg/dL (0.2 - 1); WBC,URINE (MAN) 0-5 /HPF (0-5)
--- OUTSIDE RECORDS SUMMARY | 2019-10-25 22:36 | XMS REPORT | Continuity of Care Document ---
Author Author [facility] t Organization [facility] Address [address] [place] [address] Phone Unavailable Care Team Providers Care Sugar Refinery Supervisor Name Role Phone Adamaris MARIE, Kevin PCP [phone] Melvin DELEON Attphys Unavailable Vamshi MARIE, Mumtaz Lombardi Attphys Adamaris MARIE, Kevin Attphys [phone] Julio MARIE, Salma Attphys Derrek CESPEDES, Chandni Attphys Unavailable Matilde TREATING AND PUMPING SUPERVISOR, Chastity Attphys Chandni Vila Attphys Unavailable Marcy RN, Franky Martinez Attphys Unavailable rFanck MARIE, Bossman Attphys Payers Payer Name Policy Type Policy Number Effective Date Expiration Date S [facility] [id number] [place] [address] xxxxxx 2018 00:00:00 2028 2 3:59:59 [facility] Problems Condition Name Condition Details Condition Category Status Onset Date Resolution Date Last Treatment Date Treating Clinician Comments Source Renal insufficiency Renal insufficiency Disease Active 2019-04-04 00:00 :[address] [facility] Moderate episode of recurrent major depressive disorde r Moderate episode of recurrent major depressive disorder Disease Active 2016-03-09 00:00:[address] [facility] ALEXA (generalized anxiety disorder) ALEXA (generalized anxiety diso rder) Disease Active 2016-03-09 00:00:00 [facility] Type 2 diabetes mellitus without complic ation, without long-term current use of insulin Type 2 diabetes mellitus without complic ation, without long-term current use of insulin Disease Active 2016-01-13 00:00:[address] [facility] Iron deficiency anemia, unspecified Iron deficiency anemia, unsp ecified Disease Active 2016-01-13 00:00:00 [facility] Abnormal uterine bleeding (AUB) Abnormal uterine bleeding (AUB) Dis ease Active 2016-01-13 00:00:00 [facility] Mixed hyperlipidemia- pravachol 40mg Mixed hyperlipidemia- p ravachol 40mg Disease Active 2016-01-13 00:00:[address] [facility] BMI 45.0-49.9, adult BMI 45.0-49.9, adult Disease Active 00:00:[address] [facility] Essential hypertension, benign- atenelol, HCTZ and nor vasc Essential hypertension, benign- atenelol, HCTZ and norvasc Disease Active 2014-01-27 00:00:[address] [facility] Cervical strain Cervical strain Disease Active 2006-02-13 00:00:[address] [facility] Back pain Back pain Disease Active 2006-02-13 00:00:[address] [facility] Allergies, Adverse Reactions, Alerts Allergy Name Allergy Type Status Severity Reaction(s) Onset Date Inacti ve Date Treating Clinician Comments Source Penicillins DA Active SV 2017-05-22 00:00:00 [facility] Penicillins Propensity to adverse reactions to drug Active 2006-02-13 00:00:00 Face turn colors like purple in childhood [facility] Family History Family Member Diagnosis Comments Start Date Stop Date Source Natural brother Hypertension [facility] Natural daughter Ast[facility] Maternal aunt Cancer [facility] Maternal aunt Diabetes [facility] Natural [facility] Natural mother Hypertension [facility] Natural sister Hypertension [facility] Social History Social Habit Start Date Stop Date Quantity Comments Source Sex Assigned At [facility] Cigarettes smoked current (pack per day) - Reported 00:00:00 2019-07-10 00:00:[address] [facility] Cigarette pack-years 2019-07-10 00:00:00 2019-07-10 00:00:[address] [facility] Alcohol intake 2019-07-10 00:00:00 2019-07-10 00:00:[address] [facility] History SDOH Food Worry 2019-04-01 00:00:00 2019-04-01 00:00:[address] [facility] History SDOH Food Scarcity 2019-04-01 00:00:00 2019-04-01 00:00:[address] [facility] History of tobacco use 2003-09-23 00:00:[address] [facility] Smoking Status Start Date Stop Date Source Former smoker 2019-07-10 00:00:00 2019-07-10 00:00:00 [facility] Medications Ordered Medication Name Filled Medication Name Start Date Stop Da te Current Medication? Ordering Clinician Indication Dosage Frequency Signature (SIG) Comments Components Source citalopram (CELEXA) 40 mg tablet 2019-08-20 00:00:00 Yes MDD (major depressive disorder), recurrent episode, moderate 40mg QD Take 1 tablet by mouth daily. [facility] buPROPion (WELLBUTRIN XL) 300 mg extended release tablet 2019-08-20 00:00:00 Yes MDD (major depressive disorder), recurrent epis ode, moderate 300mg Take 1 tablet by mouth every morning. [facility] ergocalciferol (VITAMIN D2) 1,250 mcg (50,000 unit) capsule 2019-07-13 00:00:00 Yes Vitamin D deficiency [id number] Take 1 cap den by mouth weekly. [facility] amLODIPine (NORVASC) 10 mg tablet 2019-07-10 00:00:00 Yes Essential hypertension 10mg QD Take 1 tablet by mouth daily. [facility] tropicamide (MYDRIACYL) 0.5 % ophthalmic solution 2019-07-10 00:00:00 2020-01-06 23:59:00 No 1[drp] Insti ll 1 Drop in each eye once as needed for up to 1 dose (for poor retina scan image). [facility] citalopram (CELEXA) 40 mg tablet 2019-06-18 00:00:2019-08 00:00:00 No MDD (major depressive disorder), recurrent episode, moderate 40mg QD Take 1 tablet by mouth daily. [facility] buPROPion (WELLBUTRIN XL) 300 mg extended release tablet 2019-06-18 00:00:2019-08-20 00:00:00 No MDD (major depressiv e disorder), recurrent episode, moderate 300mg Take 1 tablet by mouth every morning. [facility] pravastatin (PRAVACHOL) 40 mg tablet 2019-04-01 00:00:00 Yes Mixed hyperlipidemia 40mg Take 1 tablet by mouth at bedtime nightly. [facility] losartan (COZAAR) 50 mg tablet 2019-04-01 00:00:00 2019-06-15 00:00:00 No Essential hypertension 25mg QD Take 0.5 tablets by mouth daily. [facility] citalopram (CELEXA) 40 mg tablet 2019-04-01 00:00:00 2019-06 00:00:00 No MDD (major depressive disorder), recurrent episode, moderate 40mg QD Take 1 tablet by mouth daily. [facility] buPROPion (WELLBUTRIN XL) 300 mg extended release tablet 2019-04-01 00:00:00 2019-06-18 00:00:00 No MDD (major depressiv e disorder), recurrent episode, moderate 300mg Take 1 tablet by mouth every morning. [facility] lisinopril (PRINIVIL, ZESTRIL) 10 mg tablet 2018 00:00:00 2019-04-01 00:00:00 No Essential hypertension 10mg QD Take 1 tablet by mouth daily. [facility] citalopram (CELEXA) 40 mg tablet 2019-02-05 00:00:00 2019-03 00:00:00 No MDD (major depressive disorder), recurrent episode, moderate 40mg QD Take 1 tablet by mouth daily. [facility] buPROPion (WELLBUTRIN XL) 300 mg extended release tablet 2019-02-05 00:00:00 2019-04-01 00:00:00 No MDD (major depressiv e disorder), recurrent episode, moderate 300mg Take 1 tablet by mouth every morning. [facility] nitrofurantoin mono/m-crystals (MACROBID) 100 mg capsule 2018-12-25 00:00:00 2019-01-01 23:59:00 No Urinary tract infect ion with hematuria, site unspecified 100mg Q.5D Take 1 capsule by mouth 2 times daily for [address] [facility] atenolol (TENORMIN) 25 mg tablet 2018-11-22 00:00:00 Yes Essential hypertension 25mg QD Take 1 tablet by mouth daily. [facility] hydroCHLOROthiazide (HYDRODIURIL) 25 mg tablet 2018-11-22 00 :00:00 Yes Essential hypertension 25mg QD Take 1 tablet by mouth daily. [facility] metFORMIN (GLUCOPHAGE) 500 mg tablet 2018-11-22 00:00:00 Yes Controlled type 2 diabetes mellitus without complication, without long-term current use of insulin 500mg QD Take 1 tablet by mouth daily (with breakfast). [facility] cetirizine (ZYRTEC) 10 mg tablet 2018-11-22 00:00:00 Yes Environmental allergies 10mg QD Take 1 tablet by mouth daily. [facility] fluticasone propionate (FLONASE) 50 mcg/actuation nasal spra y 2018-11-22 00:00:00 Yes Environmental allergies 1{spray} QD Use 1 [place] in each nostril daily. [facility] clotrimazole (LOTRIMIN AF, CLOTRIMAZOLE,) 1 % topical cream 2018-11-22 00:00:00 Yes Tinea pedis of right foot Q.5D Apply to affected area 2 times daily For 2 wk and start again if rash recurs. [facility] tropicamide (MYDRIACYL) 0.5 % ophthalmic solution 2018-11-22 00:00:00 2018-11-22 23:59:00 No Controlled type 2 di abetes mellitus without complication, without long-term current use of insulin 1[drp] Instill 1 Drop in each eye once as needed for up to 1 dose (for poor retina scan image). [facility] atenolol (TENORMIN) 25 mg tablet 2018-10-30 00:00:00 2018-11 00:00:00 No Essential hypertension, benign 25mg QD Take 1 tablet by mouth alicia y. [facility] hydroCHLOROthiazide (HYDRODIURIL) 25 mg tablet 2 00:00:00 2018-11-22 00:00:00 No Essential hypertension, benign 25mg QD Take 1 tablet by mouth daily. [facility] citalopram (CELEXA) 40 mg tablet 2018-10-02 00:00:00 2019-01 00:00:00 No MDD (major depressive disorder), recurrent episode, moderate 40mg QD Take 1 tablet by mouth daily. [facility] buPROPion (WELLBUTRIN XL) 150 mg extended release tablet 2018-10-02 00:00:00 2019-02-05 00:00:00 No MDD (major depressiv e disorder), recurrent episode, moderate 150mg Take 1 tablet by mouth every morning. [facility] cetirizine (ZYRTEC) 10 mg tablet 2018-06-26 00:00:00 2018-11 00:00:00 No Acute frontal sinusitis, recurrence not specified 10mg QD Take 1 tablet by mouth daily. [facility] fluticasone (FLONASE) 50 mcg/actuation nasal spray 2018-06-26 00:00:00 2018-11-22 00:00:00 No Acute frontal sinusitis, rec urrence not specified 1{spray} QD Use 1 [place] in each nostril daily. [facility] ibuprofen (MOTRIN) 800 mg tablet 2018-05-22 00:00:00 2018-11 00:00:00 No Sore throat 800mg Take 1 tablet by mandie every 8 hours as needed for Pain Take with food. [facility] pravastatin (PRAVACHOL) 40 mg tablet 2018-02-14 00:00: 00 2019-04-01 00:00:00 No Mixed hyperlipidemia 40mg Take 1 tablet by mouth at b edtime nightly. [facility] amLODIPine (NORVASC) 10 mg tablet 2017-09-25 00:00:00 2018 00:00:00 No Essential hypertension, benign 10mg QD Take 1 tablet by mo [facility] daily. [facility] metFORMIN (GLUCOPHAGE) 500 mg tablet 2017-09-25 00:00: 00 2018-11-22 00:00:00 No Type 2 diabetes mellitus wit hout complication, without long-term current use of insulin 500mg QD Take 1 tablet by mouth daily (with breakfas t). [facility] atenolol (TENORMIN) 25 mg tablet 2017-09-25 00:00:00 2018-10 00:00:00 No Essential hypertension, benign 25mg QD Take 1 tablet by mouth alicia reeder [facility] hydroCHLOROthiazide (HYDRODIURIL) 25 mg tablet 2 00:00:00 2018-10-28 00:00:00 No Essential hypertension, benign 25mg QD Take 1 tablet by mouth daily. [facility] hydrOXYzine (ATARAX) 25 mg tablet 2017-08-09 00:00:00 2018 00:00:00 No Other insomnia 50mg Take 2 tablets b y mouth nightly at bedtime as needed for Insomnia. [facility] cetirizine (ZYRTEC) 10 mg tablet 2017-07-09 00:00:00 2018-11 00:00:00 No Viral upper respiratory tract infection with cough 10mg QD Take 1 tablet by mouth daily. [facility] ibuprofen (MOTRIN) 600 mg tablet 2017-07-09 00:00:00 2018-11 00:00:00 No Viral upper respiratory tract infection with cough 600mg Take 1 tablet by mouth every 8 hours as needed for Pain. [facility] benzonatate (TESSALON PERLES) 100 mg capsule 201 12-13-25 00:00:00 2018-11-22 00:00:00 No Viral upper respiratory tract infection with co ugh Take one to two capsules three times a day as needed for cough. [facility] Immunizations Ordered Immunization Name Filled Immunization Name Date Status Comments Source PPV 23 (Pneumococcal Polysaccharide 23 Valent) 2019-06 00:00:[address] [facility] Zoster Vaccine (Shingrix) 2019-07-10 00:00:[address] [facility] Influenza, Injectable, Quadrivalent, Preservative Free 2019-03-12 00:00:[address] [facility] Influenza, Vaccine<FLUCELVAX>(Multi-Dose) 2018-02-26 00:00 :[address] [facility] Influenza Vaccine, Seasonal, Injectable 2017-02-22 00:00:[address] [facility] Tdap Tetanus, diphtheria, acellular pertussis Vaccine 2016-09-07 00:00:[address] [facility] Influenza Vaccine 2016-03-09 00:00:[address] [facility] Influenza Vaccine 2015-05-03 00:00:00 [facility] Vital Signs Vital Name Observation Time Observation Value Comments Source Systolic blood pressure 2019-07-10 09:23:00 141 mm[Hg] [facility] Diastolic blood pressure 2019-07-10 09:23:00 67 mm[Hg] [facility] Heart rate 2019-07-10 09:23:00 66 /min [facility] Body temperature 2019-07-10 09:23:00 37.33 Yen Andrés is [facility] Respiratory rate 2019-07-10 09:23:00 18 /min Andrés is [facility] Body height 2019-07-10 09:23:00 162.6 cm [facility] Body weight 2019-07-10 09:23:[address] [facility] BMI 2019-07-10 09:23:00 45.66 kg/m2 [facility] Oxygen saturation in Arterial blood by Pulse oximetry 12-25 10:10:00 96 /min [facility] Procedures Procedure Date / Time Performed Performing Clinician [facility] e OPHTHALMOLOGY RETINAL SCAN 2019-07-24 14:33:08 [facility] COMPREHENSIVE METABOLIC PANEL 2019-07-10 17:07:00 [facility] HEMOGLOBIN A1C 2019-07-10 17:07:00 [facility] THYROID STIMULATING HORMONE (TSH) 2019-07-10 17:07:00 [facility] VIT D, 25-HYDROXY 2019-07-10 17:07:00 [facility] HEMOCCULT KIT FOR SPECIMEN COLLECTION AT HOME 2019-07-10 16: 05:50 [facility] MAM[facility] BILAT SCREEN DIGITAL 2019-04-03 16:51:53 [facility] CBC/DIFF 2019-04-01 16:12:00 Bossman Juárez [facility] CBC 2019-04-01 16:12:00 Bossman Juárez [facility] COMPREHENSIVE METABOLIC PANEL 2019-04-01 16:06:00 [facility] LIPID PROFILE 2019-04-01 16:06:00 [facility] HEMOGLOBIN A1C 2019-04-01 16:06:00 [facility] MICROALBUMIN / CREATININE URINE RATIO 2019-04-01 15:55:00 [facility] POC URINE DIPSTICK, WITHOUT MICRO 2018-12-25 00:00:[address] [facility] CBC/DIFF 2018-11-22 19:31:00 Adamaris [facility] COMPREHENSIVE METABOLIC PANEL 2018-11-22 19:31:00 Adamaris In katerina [facility] HEMOGLOBIN A1C 2018-11-22 19:31:00 Adamaris [facility] CBC 2018-11-22 19:31:00 Adamaris [facility] DIABETIC FOOT EXAM 2018-11-22 18:40:45 [facility] HEMOCCULT KIT FOR SPECIMEN COLLECTION AT HOME 2018-11-22 18: 37:24 [facility] Plan of Care Planned Activity Planned Date Details Comments Source [facility] Scheduled Test 2020-07-23 00:00:00 DM Retinal Exam (Y early) [code = DM Retinal Exam (Yearly)] [facility] Scheduled Test 2020-07-10 00:00:00 DM HGBA1C (Yearly) [code = DM HGBA1C (Yearly)] [facility] Scheduled Test 2020-04-03 00:00:00 Breast Cancer Scrn (Yearly) [code = Breast Cancer Scrn (Yearly)] [facility] Scheduled Test 2020-04-01 00:00:00 DM Microalbumin Ur ine Scrn (Yearly) [code = DM Microalbumin Urine Scrn (Yearly)] [facility] Scheduled Test 2019-11-23 00:00:00 DM Foot Exam (Year ly) [code = DM Foot Exam (Yearly)] [facility] Scheduled Test 2019-06-06 00:00:00 Cervical Cancer Sc rn (3 Yrs) [code = Cervical Cancer Scrn (3 Yrs)] [facility] Scheduled Test 2018 00:00:00 Colorectal Cancer Scrn Annual (FIT/FOBT) Age 50 to 75 [code = Colorectal Cancer Scrn Annual (FIT/FOBT) Age 50 to 75] [facility] Encounters Start Date/Time End Date/Time Encounter Type Admission Type Attendi [facility] Facility Care Department Encounter ID Source 2019-06-18 00:00:00 2019-06-18 00:00:00 Outpatient [facility] [id number] [facility] 2019-04-16 00:00:00 2019-04-16 00:00:00 Outpatient [facility] [id number] [facility] 2019-04-03 09:52:25 2019-04-03 09:52:25 Outpatient [facility] [id number] [facility] 2019-04-02 00:00:00 2019-04-02 00:00:00 Outpatient [facility] [id number] [facility] 2019-04-01 10:07:34 2019-04-01 10:07:34 Outpatient [facility] [id number] [facility] 2019-04-01 09:53:37 2019-04-01 09:53:37 Outpatient [facility] [id number] [facility] 2019-04-01 08:57:38 2019-04-01 08:57:38 Outpatient [facility] [id number] [facility] 2019-04-01 00:00:00 2019-04-01 00:00:00 Outpatient [facility] [id number] [facility] 2019-04-01 00:00:00 2019-04-01 00:00:00 Outpatient [facility] [id number] [facility] 2019-03-12 10:50:50 2019-03-12 10:50:50 Outpatient [facility] [id number] [facility] 2019-02-05 15:11:25 2019-02-05 15:11:25 Outpatient [facility] [id number] [facility] 2019-01-10 00:00:00 2019-01-10 00:00:00 Outpatient [facility] [id number] [facility] 2019-01-08 00:00:00 2019-01-08 00:00:00 Outpatient [facility] [id number] [facility] 2019-01-02 00:00:00 2019-01-02 00:00:00 Outpatient [facility] [id number] [facility] 2018-12-25 10:09:49 2018-12-25 10:09:49 Outpatient [facility] [id number] [facility] 2018-12-23 15:14:58 2018-12-23 15:14:58 Outpatient [facility] [id number] [facility] 2018-12-11 00:00:00 2018-12-11 00:00:00 Outpatient [facility] [id number] [facility] 2018-12-11 00:00:00 2018-12-11 00:00:00 Outpatient [facility] [id number] [facility] 2018-12-09 00:00:00 2018-12-09 00:00:00 Outpatient [facility] [id number] [facility] 2018-11-22 14:29:03 2018-11-22 14:29:03 Outpatient [facility] [id number] [facility] 2018-11-22 13:23:44 2018-11-22 13:23:44 Outpatient [facility] [id number] [facility] 2018-11-22 00:00:00 2018-11-22 00:00:00 Outpatient [facility] [id number] [facility] 2018-10-31 00:00:00 2018-10-31 00:00:00 Outpatient [facility] [id number] [facility] 2018-10-02 13:54:47 2018-10-02 13:54:47 Outpatient [facility] [id number] [facility] 2018-08-09 00:00:00 2018-08-09 00:00:00 Outpatient [facility] [id number] [facility] 2018-07-17 00:00:00 2018-07-17 00:00:00 Outpatient [facility] [id number] [facility] 2018-07-09 13:14:48 2018-07-09 13:14:48 Outpatient [facility] [id number] [facility] 2018-06-26 09:52:09 2018-06-26 09:52:09 Outpatient [facility] [id number] [facility] 2018-06-13 00:00:00 2018-06-13 00:00:00 Outpatient [facility] [id number] [facility] 2018-06-13 00:00:00 2018-06-13 00:00:00 Outpatient [facility] [id number] [facility] 2018-06-06 13:11:25 2018-06-06 13:11:25 Outpatient [facility] [id number] [facility] 2018-05-22 13:24:52 2018-05-22 13:24:52 Outpatient [facility] [id number] [facility] 2018-03-04 15:17:21 2018-03-04 15:17:21 Outpatient [facility] [id number] [facility] 2018-03-04 15:10:38 2018-03-04 15:10:38 Outpatient [facility] [id number] [facility] 2018-02-26 10:30:32 2018-02-26 10:30:32 Outpatient [facility] [id number] [facility] 2017-05-24 00:00:00 2017-05-24 00:00:00 Outpatient [facility] [id number] [facility] 2017-03-30 00:00:00 2017-03-30 00:00:00 Outpatient [facility] [id number] [facility] 2017-03-21 00:00:00 2017-03-21 00:00:00 Outpatient [facility] [id number] [facility] 2017-03-08 00:00:00 2017-03-08 00:00:00 Outpatient [facility] [id number] [facility] 2017-03-05 00:00:00 2017-03-05 00:00:00 Outpatient [facility] [id number] [facility] 2017-02-22 11:13:51 2017-02-22 11:13:51 Outpatient [facility] [id number] [facility] 2017-02-22 08:46:22 2017-02-22 08:46:22 Outpatient [facility] [id number] [facility] 2017-02-22 00:00:00 2017-02-22 00:00:00 Outpatient [facility] [id number] [facility] Results Test Description Test Time Test Comments Results Result Comments Source CHEST SINGLE (PORTABLE) 2019-10-25 20:41:00 [place] [address] Patient Name: CORKY GARNETT MR #: [id number] : [id number] Age/Sex: 49/F Req #: [id number] Adm Physician: Ordered by: MAX DELEON MD Report #: [id number] Location: ER Room/Bed: Procedure: [id number] DX/CHEST SINGLE (PORTABLE) Exam Date: 10/25/19 Exam Time: 2001 REPORT STATUS: Signed EXAMINATION: CHEST SINGLE (PORTABLE) INDICATION: Y FEVER, COUGH, CHEST PAIN [id number] COMPARISON: None FINDINGS: AP view TUBES and LINES: None. LUNGS: Limited by body habitus. Lungs are well inf lated. Questionable subtle bilateral peripheral airspace opacities. PLEURA: No pleural effusion or pneumothorax. HEART AND MEDIASTINUM: The cardiomediastinal silhouette is unremarkable. BONES AND SOFT TISSUES: No acute osseous lesion. Soft tissues are unremarkable. UPPER ABDOMEN: No free air under the diaphragm. IMPRESSION: Questionable subtle bilateral peripheral airspace opacities. Underlying/developing pneumonia cannot be excluded. Signed by: Dr. Matt Johnston MD on 10/25/2019 8:42 PM Dictated By: MATT JONHSTON MD 41 Transcribed By: ELI on 10/25/192041 COPY TO: MAX DELEON MD OPHTHALMOLOGY RETINAL SCAN 2019-07-24 11:22:38 Test Item RETINAL SCAN-FINAL RESULT (test code = 53648) NORMAL Right Diabetic Retinopathy (test code = 107830) None Right Macular Edema (test code = 18335) None Right Other Suspected Conditions (test code = 85049) None Right Image Quality (test code = 51507) Gradable Image Left Diabetic Retinopathy (test code = 71388) None Left Macular Edema (test code = 12289) None Left Other Suspected Conditions (test code = 15800) None Left Image Quality (test code = 37286) Gradable Image JANN (test code = JANN) Retinal Study Result for LUPE GARNETT, a 49 y/o, F (: 1970, )presented to [facility] on 07-24-2019 for a retinal imaging study [...] signed by Denis Erickson MD, , Taxonomy: [id number] on 07-24-2019 04:22:38 [facility] time. NOTE: Any pathology noted on this diabetic retinal evaluation should be confirmed by an appropriate ophthalmic examination. [facility] Center[facility], 75-[id number] 11:00:00* Test Item Value Reference Range Interpretation Comments Vit D, 25-Hydroxy (test code = 79803814) 16.0 ng/mL 30-100 L Vitamin D Interpretation (test code = 73562644) Deficient Suffic ient A Sufficient: >30.0Insufficient: 20.0 - 29.9Deficient: <20.0 Lab Interpretation (test code = 42476-2) Abnormal [facility] CenterHemoglobin [id number] 07:57:00* Test Item Value Reference Range Interpretation Comments Hemoglobin A1c (test code = 4548-4) 6.8 % 4.3-6.1 H Estimated Average Glucose (test code = 12424394) 148 mg/dL 70-11 0 H Lab Interpretation (test code = 51977-9) Abnormal [facility] CenterComprehensive Metabolic [id number] 07:51:00* Test Item Value Reference Range Interpretation Comments Sodium (test code = 2951-2) 139 mmol/L 136-145 Potassium (test code = 2823-3) 4.3 mmol/L 3.5-5.1 Chloride (test code = 2075-0) 101 mmol/L 98-107 CO2 (test code = 50522478) 31 mmol/L 21-31 Glucose (test code = 00226572) 120 mg/dL 70-110 H Calcium (test code = 15206846) 9.1 mg/dL 8.6-10.3 Urea Nitrogen (test code = 62426760) 12.0 mg/dL 7-25 Creatinine (test code = 43273733) 0.7 mg/dL 0.6-1.2 Alkaline Phosphatase (test code = 75700822) 75 U/L 34-104 ALT (test code = 62051341) 15 U/L 7-52 AST (test code = 22625159) 11 U/L 13-39 L Total Protein (test code = 2885-2) 6.8 g/dL 6-8.3 GFR, Estimated (test code = 03540611) 88 >=90 mL/min/1.73 m2 L Albumin (test code = 24562-8) 3.8 g/dL 3.7-5.3 Anion Gap (test code = 68517276) 7 mmol/L 5-16 Lab Interpretation (test code = 22315-8) [facility]normal [facility] CenterTS [Thyroid Stimulating Hormone]2019-07-11 07:49:00* Test Item Value Reference Range Interpretation Comments TSH (test code = 63813540) 0.96 0.45- 5.33 uIU/mL If , please see the following reference ranges (not verified by lab): 1st Trimester: 0.05 -3.70 uIU/mL2nd Trimester: 0.31 -4.35 uIU/mL3rd Trimester: 0.41 - 5.18 uIU/mL Lab Interpretation (test code = 75587-4) Normal [facility]- XR CHEST 2 [id number] 11:06:00 Name: CORKY GARNETT [facility] : 1970 Age/S:48 /F [address] [facility] Unit#:[id number] Loc: [place] [address] Phys: Blair Cordon MD Dis Date: PHONE #: [phone] Status: REG ER FAX #: [phone] Exam Date: 05/15/2019 Reason: cough EXAMS: CPT CODE: [id number] XR CHEST 2 V 13416 HISTORY: Cough. COMPARISON: April 24, 2019. Location: [facility]. AP and lateral view of the chest: No acute infiltrates, effusion or congestion. Cardiac silhouette is mildly enlarged. IMPRESSION: No acute infiltrates, effusion or congestion. at 1106 Reported and signed by: Donell Munoz M.D. CC: Blair Cordon MD Technologist: Racheal Cantor Trnscrpt Data: 05/15/2019 (1106) t.SDR.TH4 Orig Print D/T: S: 05/15/2019 (1105) PAGE 1 Signed Report - XR CHEST 2 [id number] 16:10:00 Name: CORKY GARNETT [facility] : 1970 Age/S:48 /F [address] [facility] Unit#:[id number] Loc: [place] [address] Phys: Carlos Oneal MD Dis Date: PHONE #: [phone] Status: REG ER FAX #: [phone] Exam Date: 04/24/2019 Reason: cough EXAMS: CPT CODE: [id number] XR CHEST 2 V 51022 REASON FOR EXAM: cough Exam Order Date: 04/24/2019 3:38 PM Ordering: Carlos Oneal MD Attending:Carlos Oneal MD Location:[facility] PROCEDURE: - XR CHEST 2 V COMPARISON: [...] Technologist: ERWIN ESPINOZA RT(R),CT Trnscrpt Data: 04/24/2019 (2940) t.SDR.VTL Orig Print D/T: S: 04/24/2019 (0136) PAGE 1 Signed Report MAMMOGRAM BILAT SCREEN [id number] 13:01:00IMPRESSION: BENIGNThere is no mammographic evidence of malignancy. A 1 year screening mammogram is recommended. This document has been electronically signed. Elsie Arreaga M.D. to/penrad:04/03/2019 13:01:11 Rn Critical Care: Ms. Anabel Ceron RT(R)(M), [facility] Benign Exam Mammogram BI-RADS: 2 Benign G0202 z12.31Interface, Rad/Mammog In - 04/03/2019 1:54 PM KETTLE CHIPPER#[id number] - MAMMOGRAM BILAT SCREEN DIGITALBILATERAL DIGITAL SCREENING MAMMOGRAM WITH CAD: 04/03/2019CLINICAL: Screening for malignancy. Comparison is made to exams dated: 03/04/2018, 03/30/2017, 03/09/2016, and 09/23/2013 [facility]. There are scattered fibroglandular elements in both [...] has been electronically signed.Elsie schneider o/penrad:04/03/2019 13:01:11 Rn Critical Care: Ms. Anabel Ceron RT(R)(M ), [facility] Benign Exam Mammogram BI-RADS: [address] Benign [address]12[address] CenterMicroalbumin / Creatinine Urine [id number] 22:53:00* Test Item Value Reference Range Interpretation Comments Microalbumin, Random (test code = 97217546) 2.3 mg/dL <30.0 Corrected result: Previously reported as <0.7 mg/dL on 04/01/2019 at 1450 KETTLE CHIPPER. Creatinine, Urine (test code = 33474803) 52 mg/dL 20-320 Urine Microalbumin (test code = 88435924) 44.2 mg/g 0-30 H Corrected result: Previously reported as <13.5 mg/g on 04/01/2019 at 1450 KETTLE CHIPPER. JANN (test code = JANN) RESULT RULE CHANGE Lab Interpretation (test code = 60552-7) Abnormal [facility] CenterLipid [id number] 14:48:00* Test Item Value Reference Range Interpretation Comments Cholesterol (test code = 2093-3) 203.0 mg/dL <=200.0 H Triglyceride (test code = 19785505) 199 mg/dL <150 H HDL (test code = 2085-9) 53.0 mg/dL See Reference Range Narrative . LDL (test code = 47832-3) 110 mg/dL <100 H Op timal: < 100.0 mg/dLNear Optimal: 120-129 mg/dLBorderline: 130-159 mg/dLHigh: 160-189 mg/dLVery High: >=190 mg/dL Patient Fasting? (test code = 16093544) No JANN (test code = JANN) Patient is not fasting. For a triglyceride result greater than 440 mg/dL, consider re-testing when the patient is in a fasting state. Lab Interpretation (test code = 22321-7) Abnormal [facility] URINE DIPSTICK, WITHOUT [id number] 00:00:00* Test Item Value Reference Range Interpretation Comments Color POC (test code = 8154) yellow - - - Clarity POC (test code = 8155) cloudy - - - Spec [place] POC (test code = 8156) >=1.030 1.005-1.030 [...] code = 8165) 2+ Neg - Neg [facility] CenterDIABETIC FOOT [id number] 13:40:45Kevin Bailon MD 11/22/2018 5:15 PMDiabetic Foot Exam was performed at 11/22/2018 2:05 PM. Right foot sensation is normal, right foot pulses are normal, right foot appearance is abnormal. Left foot sensation is normal, left foot pulses are normal, left foot appearance is normal. erthematous rash rt foot dorsum 2x[address] [facility]
--- OUTSIDE RECORDS SUMMARY | 2019-10-25 22:36 | XMS REPORT | Clinical Summary ---
Author Author [facility] Dist[facility] ict Organization [facility] Address Unknown Phone Unavailable Care Team Providers Care General Assembler Installer Name Role Phone Kevin Bailon MD PCP [...] 11:51 AM Active fluticasone propionate Use 1 [place] 16 g 6 (FLONASE) 50 in each [...] Discontinued (Reorder) fluticasone (FLONASE) 50 Use 1 [place] 16 g 0 0 mcg/actuation nasal in [...] Comments Vital Sign 141/67 07/10/2019 9:23 AM PLANNER INTERN Blood Pressure 66 07/10/2019 9:23 AM PLANNER INTERN Pulse 37.3 C (99.2 F) 07/10/2019 9:23 AM PLANNER INTERN Temperature 18 07/10/2019 9:23 AM PLANNER INTERN Respiratory Rate 96% 12/25/2018 10:10 AM CDT Oxygen Saturation - - Inhaled Oxygen Concentration 120.7 kg (266 lb) 07/10/2019 9:23 AM PLANNER INTERN Weight 162.6 cm (5' 4") 07/10/2019 9:23 AM PLANNER INTERN Height 45.66 07/10/2019 9:23 AM PLANNER INTERN Body Mass Index Plan of Treatment Care Team Description Date Type Specialty Maria C Bnods MD [facility] [address] [place] [address] 11/12/2019 Office Visit Psychiatry Health [...] No Barning, (07/10/2019 9:23 AM MD [place] PLANNER INTERN) Note: Improve health Procedures Comments Procedure Name Priority Date/Time Associated Diag nosis OPHTHALMOLOGY RETINAL Routine 07/24/2019 SCAN 9:33 AM CDT VIT D, 25-HYDROXY Routine 07/10/2019 Preventative health care 11:07 AM PLANNER INTERN THYROID STIMULATING Routine 07/10/2019 Essential hypertension HORMONE (TSH) 11:07 AM PLANNER INTERN HEMOGLOBIN A1C Routine 07/10/2019 Type 2 diabetes mellitus 11:07 AM PLANNER INTERN with complication-microalb COMPREHENSIVE METABOLIC Routine 07/10/2019 Type 2 diabetes mellitus PANEL 11:07 AM PLANNER INTERN with complication-microalb HEMOCCULT KIT FOR Routine 07/10/2019 Colon cancer screening SPECIMEN COLLECTION AT 10:05 AM PLANNER INTERN HOME MAMMOGRAM BILAT SCREEN Routine 04/03/2019 Breast cancer screening DIGITAL 10:51 AM PLANNER INTERN CBC Routine 04/01/2019 Abnormal uterin e bleeding 10:12 AM PLANNER INTERN (AUB) CBC/DIFF Routine 04/01/2019 Abnormal uterin e bleeding 10:12 AM PLANNER INTERN (AUB) HEMOGLOBIN A1C Routine 04/01/2019 Controlled type 2 10:06 AM PLANNER INTERN diabetes mellitus without complication, without long-term current use of insulin LIPID PROFILE Routine 04/01/2019 Controlled type 2 10:06 AM PLANNER INTERN diabetes mellitus without complication, without long-term current use of insulin COMPREHENSIVE METABOLIC Routine 04/01/2019 Contro lled type 2 PANEL 10:06 AM PLANNER INTERN diabetes mellitus w ithout complication, without long-term current use of insulin MICROALBUMIN / CREATININE Routine 04/01/2019 Neph ropathy screen URINE RATIO 9:55 AM PLANNER INTERN POC URINE DIPSTICK, Routine 12/25/2018 Dysuria WITHOUT [...] F (: [birth year] 67, ) presented to [facility] on 07-24-2019 for a retinal imaging study [...] electronically signed Denis Harris MD, , Taxonomy: [id number] on 07-24-2019 04:2 2:38 [facility] time. NOTE: Any pathology noted on this arnulfo betic retinal evaluation should be confirmed by an appropriate ophthalmic examination. Performing Organization Address City/State/Zipcode Ph one Number IRIS * Vitamin D, 25-Hydroxycalciferol (07/10/2019 11:07 AM PLANNER INTERN) Vit D, 16.0 (L) 30.0 - 100.0 ng/mL [facility] 25-Hydroxy LABORAT[facility] Vitamin D Deficient (A) Sufficient [facility] Interpretation Comment: LABORATORY Sufficient: >30.0 Insufficient: 20.0 - 29.9 Deficient: <20.0 Specimen Blood Performing Organization Address [facility] one Number [facility] [address] [place] [address] * Hemoglobin A1C (07/10/2019 11:07 AM PLANNER INTERN) Only the most recent of 3 results within the time period is included. Hemoglobin A1c 6.8 (H) 4.3 - 6.1 % [facility] Estimated 148 (H) 70 - 110 mg/dL [facility] Average Glucose LABORATORY Specimen Blood Performing Organization Address [facility] one Number [facility] [address] [place] [address] * Comprehensive Metabolic Panel (07/10/2019 11:07 AM PLANNER INTERN) Only the most recent of 3 results [...] LABORATORY Calcium 9.1 8.6 - 10.3 mg/dL [facility] Urea Nitrogen 12.0 7.0 - [...] [facility] Specimen Blood Performing Organization Address [facility] one Number [facility] [address] [place] [address] [phone] * TSH [Thyroid Stimulating Hormone] (07/10/2019 11:07 AM PLANNER INTERN) TSH 0.96 0.45 - 5.33 uIU/mL [facility] Comment: LABORATORY If , please see the following reference ranges (not verified by lab): 1st Trimester: 0.05 -3.70 uIU/mL 2nd Trimester: 0.31 -4.35 uIU/mL 3rd Trimester: 0.41 - 5.18 uIU/mL Specimen Blood Performing Organization Address City/State/Zipcode Ph one Number [facility] [address] [place] [address] * MAMMOGRAM BILAT SCREEN DIGITAL (04/03/2019 10:51 AM PLANNER INTERN) Specimen Impressions Performed At IMPRESSION: BENIGN SMS There is no mammographic evidence of ma lignancy. A 1 year screening mammogram is recommended. This document has been electronically s igned. Elsie Arreaga M.D. to/penrad:04/03/2019 13:01:11 Bounty Trapper: Ms. Anabel waldrop RT(R)(M), [facility] letter sent: Benign Exam Mammogram BI-RADS: 2 Benign G0202 z1 2.31 Narrative Performed At #[id number] - MAMMOGRAM BILAT SCREEN DIGITAL SMS BILATERAL DIGITAL SCREENING MAMMOGRAM W ITH CAD: 04/03/2019 CLINICAL: Screening for malignancy. Comparison is made to exams dated: , 03/30/2017, 03/09/2016, and 09/23/2013 [facility]. There are scattered fibroglandular nisqually ents in both breasts that could obscure [...] Interface, Rad/Mammog In - 04/03/2019 1:54 PM PLANNER INTERN #[id number] - MAMMOGRAM BILAT SCREEN DIGITAL BILATERAL DIGITAL SCREENING MAMMOGRAM WITH CAD: 04/03/2019 CLINICAL: Screening for malignancy. Comparison is made to exams dated: 03/04/2018, 03/30/2017, 03/09/2016, and 09/23/2013 [facility]. There are scattered fibroglandular elements [...] electronically signed. Elsie Arreaga M.D. to/penrad:04/03/2019 13:01:11 Bounty Trapper: Ms. Anabel Ceron RT([place]oula)(M), [facility] letter sent: Benign Exam Mammogram BI-RADS: 2 Benign G0202 z12.31 Performing Organization Address City/State/Zipcode Ph one Number SMS * CBC/Diff (04/01/2019 10:12 AM PLANNER INTERN) Only the most recent of 2 results [...] [facility] Specimen Blood Performing Organization Address City/[facility] Ph one Number [facility] [address] [place] [address] * Lipid Profile (04/01/2019 10:06 AM PLANNER INTERN) [facility] Cholesterol 203.0 (H) <=200.0 mg/dL [facility] [...] in a fasting state. Performing Organization Address City/[facility] Ph one Number [facility] [address] [place] [address] * Microalbumin / Creatinine Urine Ratio (04/01/2019 9:55 AM PLANNER INTERN) [facility] Microalbumin, 2.3Comment: Corrected result: <30.0 mg/dL [facility] Random Previously reported as <0.7 LABORATOR Y mg/dL on 04/01/2019 at 1450 PLANNER INTERN. Creatinine, 52 20 - 320 mg/dL [facility] Urine LABORATORY Urine 44.2 (H)Comment: Corrected 0.0 - 30.0 mg/g [facility] N [facility] Microalbumin result: Previously reported as LABORA TORY <13.5 mg/g on 04/01/2019 at 1450 PLANNER INTERN. Specimen Urine - Voided, urine Narrative Performed At RESULT RULE CHANGE [facility] Performing Organization Address City/State/[facility] Ph one Number [facility] [address] [place] [address] * POC URINE DIPSTICK, WITHOUT MICRO (12/25/2018) Color POC yellow - - - Clarity POC cloudy - - - Spec [place] >=1.030 1.005 - 1.030 POC pH POC [...] Effective Phone Address Plan / Dates Group [facility] SELF-PAY SELF-PAY xxxxxx 2018- [phone] [address] [place] [address] 7 [phone] A Anga Personal/F Self 1970 [phone] (Home) [place], [place] [address]
[2019-10-25] MEDS ORDERED: ZOLPIDEM TARTRATE 5 MG TAB PO PRN (23:00)
[2019-10-26] VITALS: BP 138/81
[2019-10-26 00:30] VITALS: BP 138/81
--- NOTE | 2019-10-26 00:46 | Consultation ---
DATE OF CONSULTATION: Pulmonary Critical Care Consultation CHIEF COMPLAINT: Fever and dyspnea. HISTORY OF PRESENT ILLNESS: The patient is a 49-year-old woman. She has been ill with malaise and dyspnea for about a week. She has noticed fevers at home. She denies any abdominal pain. She has no nausea or vomiting. PAST SURGICAL HISTORY: Noncontributory. PAST MEDICAL HISTORY: 1. Diabetes without insulin. 2. No prior history of asthma or COPD. 3. No prior history of heart disease. ALLERGIES: THE PATIENT IS ALLERGIC TO PENICILLIN. FAMILY HISTORY: Noncontributory. REVIEW OF SYSTEMS: The patient did have some fevers at home. There is no headache. There is no neck pain. She is having dyspnea and cough. No chest pain. There is no abdominal pain. She has no nausea or vomiting. She has no leg edema. PHYSICAL EXAMINATION: VITAL SIGNS: The patient is afebrile. The blood pressure is 152/90 and the pulse is 73. Saturation is 97%. The patient's temperature is 99.9. HEENT: Shows no facial swelling or erythema. CARDIAC: Reveals regular rate and rhythm with normal S1 and S2. LUNGS: Auscultation of lungs reveals crackles at the bases. There is no wheezing. ABDOMEN: Soft, nontender. There is no rebound or guarding. EXTREMITIES: Shows no leg edema or calf tenderness. SKIN: Shows no rashes. NEUROLOGIC: Shows no focal abnormalities. LABORATORY DATA: White blood count is 6.1 and hemoglobin is 14.8. The platelet count is 166. The BUN to creatinine ratio is 16 to 1.06. The potassium is 3.7 and carbon dioxide is 22. Albumin is 3.4. RADIOGRAPHIC DATA: Chest x-ray shows peripheral airspace opacities suggestive of possible viral pneumonia. IMPRESSION: 1. Coronavirus disease 2019. 2. Viral pneumonia. PLAN: 1. Antibiotics. 2. Oxygen. 3. Judicious use of fluids. Reji Wilde MD [facility]/MODL /[id number]
--- NOTE | 2019-10-26 01:00 | NUR ---
{null, RECEIVED PATIENT FROM ER IN STABLE CONDITION, NO SIGNS OF RESPIRATORY DISTRESS NOTED. IV FLUIDS ARE RUNNING AT ORDERED RATE AND PATIENT VOICES NO PAIN AT THIS TIME. BED IS IN LOWEST POSITION, BOTH SIDE RAILS ARE UP, CALL LIGHT IS WITHIN EASY REACH, WILL CONTINUE TO MONITOR. }
[2019-10-26] MEDS ORDERED: ONDANSETRON HCL INJ 2MG/ML 2ML 2 MG/ML VIAL IV PRN (03:00)
[2019-10-26] MEDS ORDERED: HYDRALAZINE HCL 20 MG/ML VIAL IV PRN (03:00)
[2019-10-26 04:00] VITALS: BP 113/71
[2019-10-26] MEDS: SODIUM CHLORIDE 0.9% 1000ML 1,000 ML IV SCH (05:25)
[2019-10-26] MEDS: INSULIN REGULAR, HUMAN 100 UNIT/1 ML 3ML VIAL SQ SCH ×2 (07:30→11:30)
[2019-10-26 08:28] VITALS: BP 104/89
[2019-10-26 08:36] VITALS: BP 104/89
[2019-10-26] MEDS ORDERED: pravastatin PO (08:45)
[2019-10-26] MEDS ORDERED: ASPIRIN ENTERI325 MG PO (08:45)
[2019-10-26] MEDS ORDERED: FERROUS SULFAT325 MG PO (08:45)
[2019-10-26] MEDS ORDERED: CITALOPRAM HBR20 MG PO (08:45)
[2019-10-26] MEDS ORDERED: AMLODIPINE BESY10 MG PO (08:45)
[2019-10-26] MEDS ORDERED: VITAMIN B-121000 MCG PO (08:45)
[2019-10-26] MEDS ORDERED: ESIDRIX25 MG PO (08:45)
[2019-10-26] MEDS ORDERED: METFORMIN HCL500 MG PO (08:45)
[2019-10-26] MEDS ORDERED: BUPROPION XL150 MG PO (08:45)
[2019-10-26] MEDS ORDERED: ATENOLOL50 MG PO (08:45)
[2019-10-26] MEDS ORDERED: FAMOTIDINE 20 MG/2 ML VIAL IV SCH (09:00)
--- NOTE | 2019-10-26 10:03 | NUR ---
{null, Met with Escobar ALMEIDA regarding care plan and dc plans. He anticipates discharging pt home today, pending his assessment. Addendum: 10/26/19 at 1021 by FARHANA CINTRON CM CORRECTION: ESCOBAR RAE NP }
[2019-10-26 11:24] LABS: BASOPHILS % 0.2 % (0.0-1.0); HEMATOCRIT 43.1 % (34.2-44.1); LYMPHOCYTES # (AUTO) 1.1 (1.0-3.2); LYMPHOCYTES % 25.2 % (18.0-39.1); MEAN CORPUSCULAR HEMOGLOBIN 28.4 pg (28-32); MEAN CORPUSCULAR HGB CONC 32.5 g/dL (31-35); MEAN CORPUSCULAR VOLUME 87.4 fL (81-99); MONOCYTES # (AUTO) 0.4 (0.2-0.8); MONOCYTES % 8.2 % (4.4-11.3); PLATELET COUNT 161 x10e3/uL (140-360); RED BLOOD COUNT 4.93 x10e6/uL (3.6-5.1); RED CELL DISTRIBUTION WIDTH 13.3 % (11.7-14.4)
[2019-10-26 11:42] LABS: MAGNESIUM 1.6 MG/DL (1.3-2.1); PHOSPHORUS 2.2 MG/DL (2.3-4.7)
[2019-10-26 12:03] LABS: CREATINE KINASE MB 1.1 ng/mL (0-5.0)
[2019-10-26 12:04] LABS: THYROID STIMULATING HORMONE 1.171 uIU/mL (0.350-4.940)
[2019-10-26 12:25] VITALS: BP 107/51
[2019-10-26 12:32] LABS: ALANINE AMINOTRANSFERASE 25 IU/L (0-55); ALBUMIN 3.3 g/dL (3.5-5.0); ALBUMIN/GLOBULIN RATIO 0.8 (0.8-2.0); ALKALINE PHOSPHATASE 89 IU/L (40-150); ANION GAP 15.6 mmol/L (8-16); BLOOD UREA NITROGEN 10 mg/dL (7-26); BUN/CREATININE RATIO 13 (6-25); CALCIUM 8.5 mg/dL (8.4-10.2); CARBON DIOXIDE 23 mmol/L (22-29); CHLORIDE 105 mmol/L (98-107); CREATININE, SERUM 0.78 mg/dL (0.57-1.11); EST GLOMERULAR FILTRATION RATE > 60 ML/MIN (60-); GLUCOSE 129 mg/dL (74-118); POTASSIUM 3.6 mmol/L (3.5-5.1); SODIUM 140 mmol/L (136-145)
--- NOTE | 2019-10-26 14:00 | NUR ---
{null, Per Dr.Hamer Charles and , "patient cleared to discharge." Prince Uzma SIDDIQI aware }
[2019-10-26] MEDS ORDERED: AZITHROMYCIN250 MG PO (14:01)
--- NOTE | 2019-10-26 14:23 | Progress Note ---
DATE: SUBJECTIVE: The patient is feeling better. She is having less dyspnea. She has no cough. PHYSICAL EXAMINATION: VITAL SIGNS: The blood pressure is 107/51, saturation is 95%, and the pulse is 78. HEENT: Shows no facial swelling or erythema. CARDIAC: Reveals regular rate and rhythm with normal S1 and S2. LUNGS: Auscultation of lungs reveals rhonchorous breath sounds bilaterally. There is no wheezing. ABDOMEN: Soft and nontender. There is no rebound or guarding. EXTREMITIES: Shows no leg edema or calf tenderness. There is no cyanosis or clubbing. SKIN: Shows no rashes. NEUROLOGICAL: Shows no focal abnormalities. LABORATORY DATA: BUN to creatinine ratio is normal. Other electrolytes are within normal limits. The white blood cell count is 4.5 and the platelet count is 161. IMPRESSION: 1. COVID-19 and viral pneumonia. 2. Diabetes. PLAN: 1. Discharge home. 2. Oxygen if needed. 3. Antibiotics. 4. Follow up with Dr. Jackson in 2 weeks. Reji Wilde MD [facility]/MODL /[id number]
--- NOTE | 2019-10-26 14:54 | Consultation ---
DATE OF CONSULTATION: HISTORY OF PRESENT ILLNESS: Ms. Ang is a very pleasant 49-year-old white female, history of obesity, comes in with cough, feeling sick for few days. She was in a constitution party 5 days ago and then got sick. The patient, who has history of diabetes mellitus and obesity, otherwise denies. PAST SURGICAL HISTORY: Denies. ALLERGIES: NKA. SOCIAL HISTORY: There is no smoking, drug abuse, or alcohol abuse. FAMILY HISTORY: Unremarkable. REVIEW OF SYSTEMS: HEENT: Negative. PULMONARY: Negative. CARDIAC: Negative. PHYSICAL EXAMINATION: GENERAL: She is currently alert and oriented. Does not seem to be in acute distress. VITAL SIGNS: Stable, currently afebrile. HEENT: She is not icteric. NECK: Supple. CHEST: Clear. HEART: S1 and S2. No S3, S4, or murmurs. ABDOMEN: Soft. Bowel sounds present. No tenderness. EXTREMITIES: No edema. SKIN: No rash. LABORATORY DATA: Her white count was 4.53. Her COVID-19 was positive. Her sodium 140 and potassium 3.6. Her chest x-ray was suggestive of questionable bilateral airspace opacity. IMPRESSION: Atypical pneumonia, COVID-19, clinically stable. The patient can be discharged home with [facility]. To call me if she became short of breath. Aspirin one p.o. daily for now. See me in 2 weeks. MD [facility] /[id number]
--- NOTE | 2019-10-26 15:05 | NUR ---
{null, Left FA IV discontinued. No signs of infiltration noted. Placed 2x2 gauze and coban. Taken by PCT via wheelchair to personal car. Family member waiting for patient. AAOX4 to time, person, place, situation. Respirations even and unlabored. Discharge instructions, rx, and all personal belongings taken with patient. Home medications taken with patient. }
--- NOTE | 2019-10-26 15:14 | History and Physical ---
TIME OF ADMISSION: At 2233 hours. CONSULTING PHYSICIANS: Include: 1. Dr. Jam Jackson with Infectious Disease. 2. Dr. Reji Wilde with Pulmonology. PRIMARY CARE PHYSICIAN: No primary care physician listed. CHIEF COMPLAINT: Chills and shortness of breath. HISTORY OF PRESENT ILLNESS: The patient is a 49-year-old female admitted with complaints of generalized weakness, generalized body, chest and back aches as well as chills. She explains that her symptoms started about 3 days ago on Sunday. She had come in contact with a COVID positive friend about one week ago, thus she went to [facility] on 10/23 for an outpatient COVID test with results still pending. Apparently in the emergency department, it was painful to breathe with pain located in the right lateral chest area. On or about admission, temperature 99.9, heart rate 65, respirations 16, blood pressure 143/94, and oxygen saturation 96%. At that time, her WBC 6.16, hemoglobin 14.8, hematocrit 45.7, platelets 166, and neutrophils 4.5%. D-dimer quantitative 140 ng/mL. Sodium 137, potassium 3.7, chloride 102, CO2 22, anion gap 16.7, BUN 16, creatinine 1.06, estimated ejection fraction 55, glucose 163, and calcium 9.9. Total bilirubin 0.5, AST 22, ALT 25, and alkaline phosphatase 97. Creatine kinase 35, CK-MB 0.7, and troponin I 0.019. Total protein 7.7 and albumin 3.4. Chest x-ray shown questionable subtle bilateral peripheral airspace opacities. Underlying or developing pneumonia could not be excluded by the interpreting radiologist. A 12-lead EKG had shown normal sinus rhythm with a heart rate of 64. PAST MEDICAL HISTORY: Hypertension, type 2 diabetes mellitus, hyperlipidemia, depression, anxiety, and obesity. PAST SURGICAL HISTORY: and bilateral tubal ligation. FAMILY HISTORY: Mom had a stroke. Maternal grandfather had a myocardial infarction. Uncle had a myocardial infarction. SOCIAL HISTORY: The patient has a history of smoking quarter of a pack per day for 5 years and she quit in 1990. She drinks wine on occasion. Denies any illicit drug use. ALLERGIES: PENICILLIN. REVIEW OF SYSTEMS: CONSTITUTIONAL: She was having chills on 10/24. Denies having any fever. No unintentional weight loss. EYES, EARS, NOSE, AND THROAT: No complaints of eyes, ears, nose. She does have a sore throat on Sunday. RESPIRATORY: Denies shortness of breath at present. No cough or phlegm. However, she does note that she feels fatigued and any exertion makes it worse. GASTROINTESTINAL: She had nausea on 10/24. No diarrhea. A 14-point review of systems completed. Otherwise, in regards review of systems, no complaints. PHYSICAL EXAMINATION: VITAL SIGNS: From today, temperature 98.0, T-max 99.9, heart rate 77, respirations 20, blood pressure 113/71, and oxygen saturation 95% on room air. Height 5 feet 4 inches, weight 261 pounds, BMI 44.79. ADMITTING AND DISCHARGE DIAGNOSES: 1. Bilateral viral community-acquired pneumonia, present on arrival, due to COVID-19. 2. Controlled hypertension. 3. Uncontrolled type 2 diabetes mellitus with hyperglycemia. 4. Anxiety and depression. 5. Hyperlipidemia. 6. Morbid obesity with BMI 44.79. Today on the day of discharge, sodium 140, potassium 3.6, chloride 105, CO2 23, anion gap 15.6, BUN 10, creatinine 0.78, estimated GFR greater than 60, and glucose 129. Hemoglobin A1c 6.5%. Calcium 8.5, phosphorus 2.2, and magnesium 1.6. Total bilirubin 0.4, AST 24, ALT 25, and alkaline phosphatase 89. Creatine kinase 40, CK-MB 1.1, and troponin I 0.015. Total protein 7.2 and albumin 3.3. Triglycerides 91, cholesterol 158, LDL 87, and HDL 53. TSH 1.171. Urinalysis collected 10/24, essentially within normal limits with rare bacteria and trace amount of protein, specific gravity greater than or equal to 1.03. 10/24, coronavirus by PCR was detected. Blood cultures x2 were collected 10/24 and the results are pending. Case was discussed with Dr. Boles, Dr. Wilde as well as Dr. Jackson. The patient will be sent home with [facility] for 3 days. Continue her home medications. She is not requiring supplemental oxygen. She denies cough. Denies diarrhea. I explained to the patient that she needs to self-quarantine at least 2 weeks. She can follow up with her PCP in 1 to 2 weeks. Follow up with Dr. Jackson in 2 weeks. Follow up with Dr. Wilde as directed. Continue ADA diet. Activity level as tolerated. Dictated by Escobar Vences, NEERU MD ZULLY Hay/SLIM /[id number]
== END 2019-10-26 15:05 | disposition home or self-care (01) ==
LOC: ER 19:44 → ERHOLD 22:33 → IMCU 10-26 00:44
PROVIDERS: ADMIT Internal Medicine; ATTEND Internal Medicine
DX: U07.1 COVID-19 (principal); J12.89 Other viral pneumonia; I10 Essential (primary) hypertension; E11.65 Type 2 diabetes mellitus with hyperglycemia; E78.5 Hyperlipidemia, unspecified; E66.01 Morbid (severe) obesity due to excess calories; Z68.41 Body mass index [BMI] 40.0-44.9, adult; Z88.0 Allergy status to penicillin; Z82.3 Family history of stroke; Z82.49 Family history of ischemic heart disease and other diseases of the circulatory system; Z72.0 Tobacco use; Z79.82 Long term (current) use of aspirin; Z79.84 Long term (current) use of oral hypoglycemic drugs
CPT/HCPCS: 36415 ×2; 71045; 80053 ×2; 80061; 81001; 82550 ×2; 82553 ×2; 82948; 83036; 83735; 84100; 84443; 84484 ×2; 85025 ×2; 85379; 87040; 87635; 93005; 99284; G0378 ×2; J0456; J0696; J1817; J7030 ×2